=== PATIENT | female | born 1945 | race Caucasian/White ===

== ENCOUNTER → 2016-10-07 | Outpatient (CLI) | payer OTHER, MEDICARE | LOC: WC.BC 08:08 | DX: Z12.31 Encounter for screening mammogram for malignant neoplasm of breast (principal) | CPT/HCPCS: 77063; G0202 ==

== ENCOUNTER 2017-01-01 13:41 | Inpatient (IN) ==
[2017-01-01] MEDS ORDERED: SALINE FLUSH 10ml SYRINGE IVF PRN (13:54)
--- NOTE | 2017-01-01 14:00 | Emergency Department Report ---
Lower Extremity Injury HPI - General Chief Complaint: Extremity Injury, Lower Stated Complaint: Rt hip pain Time Seen by Provider: 01/01/17 13:54 - History of Present Illness HPI Narrative: 71-year-old female presents via EMS with right hip pain. 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 She felt like it was dangling and she could not contract muscles. That resolved fairly quickly, but she realized that there was something on and called for help. No previous hip fracture - Related Data Home Medications Medication Instructions Recorded Confirmed Acetaminophen [Pain Relief] 1,000 mg PO Q8H PRN 01/01/17 01/01/17 Simvastatin [Simvastatin] 20 mg PO HS 01/01/17 01/01/17 Allergies Allergy/AdvReac Type Severity Reaction Status Date / Time No Known Allergies Allergy Verified 01/01/17 13:58 Review of Systems All systems: reviewed and negative except as stated Physical Exam - Limitations Limitations: no limitations - General General appearance: alert, anxious - Normal Exams: Head:: Normocephalic without trauma Chest/Respirations:: Clear all guo, with good airflow, and symmetry bilaterally Cardiovascular:: Regular rate and rhythm, without murmur or gallop, Pulses 2+ all extremities, capillary refill, <2 seconds all extremities Abdomen:: Bowel sounds positive, soft, non-tender, non-distended, no hepatosplenomegaly, masses or bruits noted Neurological:: Patient is alert, and oriented, cranial nerves, motor/sensory/ cerebellar, exams w/o gross deficits, to observation Psychiatric:: Patient exhibits, appropriate attention, emotion and affect - Expanded Lower Extremity Exam Hip/Pelvis exam: Present: external rotation, shortening, other (patient is comfortable as long as her knee is up on a pillow allowing for the external rotation.) - Neurological Exam Neurological exam: Present: alert, oriented X3, other (patient has no motor sensory deficit in either leg, full sensation, pedal pulses are appropriate) Course Vital Signs Temperature 97.7 F 01/01/17 13:48 Pulse Rate 93 01/01/17 13:48 Respiratory Rate 20 01/01/17 13:48 Blood Pressure 190/86 H 01/01/17 13:48 Pulse Oximetry 99 01/01/17 13:48 Temperature 97.7 F 01/01/17 13:48 Pulse Rate 91 01/01/17 15:47 Respiratory Rate 20 01/01/17 13:48 Blood Pressure 148/92 H 01/01/17 15:47 Pulse Oximetry 98 01/01/17 15:47 Extremity Injury, Lower - MDM Narrative Medical decision making narrative: Femoral neck fracture noted on xray. Orthopedics consulted and Dr Rodriguez would like her placed in [employer] Traction and film reshot to see if leg can be relengthened prior to surgery this evening. Traction ordered and will be placed once patient is in a bed which will support it. Pain treated with 25mcg Fentanyl by ems, then 2mg morphine iv. Pt is medically stable at this time and Orthopedics will admit her. - Lab Data Result diagrams: 01/01/17 15:10 01/01/17 15:10 Lab Results 01/01/17 01/01/17 Range/Units 15:10 15:10 WBC 15.8 H (4.5-11.0) T/MM3 RBC 5.09 (4.00-5.20) M/MM3 Hgb 14.9 (12-16) GM/DL Hct 43.7 (36-46) % MCV 85.9 (80-100) UM3 MCH 29.3 (26-34) UUG MCHC 34.1 (31-37) GM/DL RDW Std Deviation 42.8 (36.9-50.2) FL Plt Count 149 (130-400) T/MM3 MPV 12.3 (9.4-12.4) UM3 Immature Gran % (Auto) Not performed Neut % (Auto) Not performed Lymph % (Auto) Not performed [place] % (Auto) Not performed Eos % (Auto) Not performed Baso % (Auto) Not performed Neut # Not performed Lymph # Not performed [place] # Not performed Baso # Not performed Abs Immat Gran (auto) Not performed Neutrophils % (Manual) 80.0 H (33-66) % Band Neutrophils % 9.0 H (0-6) % Lymphocytes % (Manual) 4.0 L (23-45) % Monocytes % (Manual) 7.0 (0-9.0) % Neutrophils # (Manual) 12.6 H (1.8-7.7) T/MM3 Band Neutrophils # 1.4 T/MM3 Lymphocytes # (Manual) 0.6 L (1-4.8) T/MM3 Monocytes # (Manual) 1.1 H (0-0.8) T/MM3 RBC Morph Comment Normal Turbidity < 20 (0-20) Sodium 139 (134-144) MEQ/L Potassium 3.5 L (3.6-5) MEQ/L Chloride 104 (98-107) MEQ/L Carbon Dioxide 25 (22-30) MEQ/L Anion Gap 10 (5-15) MEQ/L BUN 13.0 (7-17) MG/DL Creatinine 0.7 (0.7-1.2) MG/DL GFR Calculation 83 BUN/Creatinine Ratio 19 (6-26) RATIO Glucose 115 H (65-110) MG/DL Calculated Osmolality 269 (261-280) MOSM/KG Calcium 9.4 (8.4-10.2) MG/DL Total Bilirubin 0.50 (0.20-1.30) MG/DL Icterus Index < 2 (0-7) AST 24 (14-36) U/L ALT 41 (9-52) U/L Alkaline Phosphatase 115 (38-126) U/L Total Protein 6.1 L (6.3-8.2) G/DL Albumin 4.2 (3.5-5.0) G/DL Globulin 1.9 L (2.4-3.6) G/DL Albumin/Globulin Ratio 2.2 (1.1-2.2) RATIO Specimen Hemolysis < 15 (0-25) Disposition Clinical Impression: Intertrochanteric fracture of right hip Qualifiers: Encounter type: initial encounter Fracture type: closed Fracture alignment: displaced Qualified Code(s): S72.141A - Displaced intertrochanteric fracture of right femur, initial encounter for closed fracture [place] [facility] [place]: Stable Prescriptions: No Action Simvastatin [Simvastatin] 20 mg PO HS Acetaminophen [Pain Relief] 1,000 mg PO Q8H PRN PRN Reason: Pain Referrals: ROSELINE RAMOS [Primary Care Provider] - Time of Disposition: 16:07 - Seen By: physician
--- NOTE | 2017-01-01 14:40 | XRay Report ---
Indication: fall with right hip pain PROCEDURE: XR hip RT min 2V: Encounter: Initial Comparison: None Findings: Angulated intertrochanteric fracture of the right femur. No additional acute fracture or dislocation seen. Mild bony demineralization. [place] anterior angulation on the crosstable lateral view. Impression: Closed posttraumatic intertrochanteric right femoral fracture. .
--- NOTE | 2017-01-01 15:02 | XRay Report ---
Indication: femur fracture PROCEDURE: XR chest 1V: Encounter: Initial Comparison: None Findings: Rounded dense 1.2 cm nodule projecting over the right anterior third rib. Mild prominence of the interstitial markings. No consolidative pneumonia, pleural effusion or pneumothorax. Heart size and mediastinal contours are within normal limits. Pulmonary vascularity is not enlarged. Impression: 1. No acute cardiopulmonary disease. 2. Dense nodule projecting over the right upper lobe could be within the lung, bone or soft tissues. Recommend noncontrast chest CT for further evaluation. .
[2017-01-01] MEDS ORDERED: MORPHINE SULFATE 10 MG SYRINGE IV ONE ×2 (15:03→16:04)
--- NOTE | 2017-01-01 15:53 | Orthopedic Consult Note ---
Orthopedic Consultation HPI - Consultation Info Consult Date: 01/01/17 Attending Physician: Isabela Rodriguez MD Consult Reason: fracture (right hip fracture.) - History of Present Illness 71 yo female who was at work today when she fell and injured her right hip. She had severe pain and was unable to ambulate. [place] [facility] showed an intertrochanteric fx of the right hip. She reports the right foot feels a little numb but she is able to move it without limitations. No reported head injury. Denies other injury except for her right hip. Hospitalist to admit. Review of Systems - Constitutional Constitutional: Absent: chills, fever(s), headache(s) - Cardiovascular Cardiovascular: Absent: chest pain - Respiratory Respiratory: Absent: dyspnea - Gastrointestinal Gastrointestinal: Absent: abdominal pain - Musculoskeletal Musculoskeletal: Present: as per HPI - Neurological Neurological: Present: other (Reports the right foot feels a little numb.) - Psychiatric Psychiatric: Present: other (No complaints.) - Hematologic/Lymphatic Hematologic/Lymphatic: Absent: easy bleeding, easy bruising PFSH Dyslipidemia Medications Home Medications Medication Instructions Recorded Confirmed Type Acetaminophen [Pain Relief] 1,000 mg PO Q8H PRN 01/01/17 01/01/17 History Simvastatin [Simvastatin] 20 mg PO HS 01/01/17 01/01/17 History Allergies Allergy/AdvReac Type Severity Reaction Status Date / Time No Known Allergies Allergy Verified 01/01/17 13:58 Orthopedic Exam Vital signs: Temp Pulse Resp BP Pulse Ox 97.7 F 91 20 148/92 H 98 01/01/17 13:48 01/01/17 15:47 01/01/17 13:48 01/01/17 15:47 01/01/17 15:47 - Constitutional General Appearance: Present: alert, no acute distress - Respiratory Exam Present: non-labored - Cardiovascular Exam Present: pedal pulses intact Capillary Refill: < 2-3 Seconds - Extremities Exam Present: pulses intact - Integumentary Exam Present: pink, warm, dry, intact - Neurological Exam Present: no deficits - Psychiatric Exam Present: alert - Labs Result Diagrams: 01/01/17 15:10 01/01/17 15:10 Abnormal lab results 01/01/17 01/01/17 Range/Units 15:10 15:10 WBC 15.8 H (4.5-11.0) T/MM3 Neutrophils % (Manual) 80.0 H (33-66) % Band Neutrophils % 9.0 H (0-6) % Lymphocytes % (Manual) 4.0 L (23-45) % Neutrophils # (Manual) 12.6 H (1.8-7.7) T/MM3 Lymphocytes # (Manual) 0.6 L (1-4.8) T/MM3 Monocytes # (Manual) 1.1 H (0-0.8) T/MM3 Potassium 3.5 L (3.6-5) MEQ/L Glucose 115 H (65-110) MG/DL Total Protein 6.1 L (6.3-8.2) G/DL Globulin 1.9 L (2.4-3.6) G/DL H & H 01/01/17 Range/Units 15:10 Hgb 14.9 (12-16) GM/DL Hct 43.7 (36-46) % Impression and Recommendation (1) Intertrochanteric fracture of right hip Current visit: Yes Qualifiers: Encounter type: initial encounter Fracture type: closed Fracture alignment: displaced Qualified Code(s): S72.141A - Displaced intertrochanteric fracture of right femur, initial encounter for closed fracture Status: Acute Dr Rodriguez has evaluated the pt and recommends internal fixation of the right hip to treat this fracture. Pt is active and still in the work force which makes her a good candidate to fix this. The hospitalist will admit and evaluate for medical clearance. Risks and benefits of the recommended procedure were discussed with the patient and/or patient's legal automobile sales representative. They include: infection, nerve damage, artery damage, stroke, [place], PE, DVT, ileus, continued pain, or risk that the injury may not heal despite surgery. There are also medical risks of anesthesia. Risks are not limited to the above mentioned alone. Questions were answered to the pts satisfaction. Hospital Course Summary Disclaimer: The visit summary below is not to be considered part of the above Progress Note.
[2017-01-01] MEDS: LR 1,000 ML IV SCH ×2 (16:33→18:55)
[2017-01-01] MEDS ORDERED: LIDOCAINE 1% (10mg/ml) 30ml SDV INJ ONE (16:50)
[2017-01-01] MEDS ORDERED: BUPIVACAINE 0.25% (2.5mg/ml) PF 30ml INJECTION ONE (16:50)
[2017-01-01] MEDS ORDERED: FentaNYL 100 MCG/2 ML INJECTION ONE (17:07)
[2017-01-01] MEDS ORDERED: MIDAZOLAM 2mg/2ml INJECTION ONE (17:07)
[2017-01-01] MEDS ORDERED: BUPIV 0.25% 30ml/LIDO 1% 30ml MIXTURE IR ONE (17:20)
[2017-01-01] MEDS ORDERED: CEFAZOLIN 1 G INJECTION IVP ONE ×2 (17:21→19:15)
[2017-01-01] MEDS ORDERED: HYDROMORPHONE 2 MG/ML INJECTION ONE (18:09)
[2017-01-01] MEDS ORDERED: PHENYLEPHRINE INJ 10 MG/ML VIAL IV ONE (18:23)
[2017-01-01] MEDS ORDERED: SALINE FLUSH 10ml SYRINGE ONE (18:23)
--- NOTE | 2017-01-01 18:46 | Anesthesia Preoperative Report ---
Anesthesia Preoperative Record - Date and Time Date: 01/01/17 Preoperative Diagnosis: Right hip fracture Proposed Procedure: right femur gamma nail NPO Since Date: 01/01/17 NPO Since Time: 11:00 (crackers and soda ) Allergies/Adverse Reactions: Allergies Allergy/AdvReac Type Severity Reaction Status Date / Time No Known Allergies Allergy Verified 01/01/17 13:58 - Vital Signs Vital Signs: Temp Pulse Resp BP Pulse Ox 98.2 F 96 16 132/66 92 01/01/17 16:10 01/01/17 16:10 01/01/17 16:10 01/01/17 16:10 01/01/17 16:10 - Medications Inpatient Medications: Current Medications Lactated Ringer's (Lactated Ringers) 1,000 mls @ 50 mls/hr IV .Q20H RITESH Last Admin: 01/01/17 16:33 Dose: 50 mls/hr Sodium Chloride (Iv Flush) 10 - 80 ml IVF PRN PRN PRN Reason: [place] Home Medications: Home Medications Medication Instructions Recorded Confirmed Type Acetaminophen [Pain Relief] 1,000 mg PO Q8H PRN 01/01/17 01/01/17 History Simvastatin [Simvastatin] 20 mg PO HS 01/01/17 01/01/17 History Is Patient on Beta Randy?: No - Medical History Respiratory: Reports: Chronic Obstructive Pulmonary Disease (COPD) (possible) Cardiovascular: Reports: High Cholesterol DENIES: Hypertension Gastrointestional: DENIES: Gastroesophageal Reflux Disease Neuro/Musculoskeletal: Denies: Other Renal/Endocrine: DENIES: Diabetes Mellitus Type 2 Other History: DENIES: Anesthesia Reactions - Surgical History Musculoskeletal Surgery/Tx: Reports: Other (FEMORAL HEAD) Anesthesia Reactions: None Hx Family Anesthesia Reaction: No History of Motion Sickness: No - Social History Smoking Status: Current every day smoker Packs per day: 20 Hx Chewing Tobacco Use: No Substance Use Type: does not use - Pertinent Findings EKG Rhythm: Normal Sinus Rhythm, First Degree AV-Block - Physical Exam Respiratory Exam: Present: bilateral breath sounds equal (s) Cardiovascular Exam: Present: regular rate and rhythm Physical Exam: slightly coarse - Airway Assessment Mallampati Score: II TMD: 3 Fingerbreadths Neck Extension: fair Overall Assessment: no airway concerns - ASA ASA Score: 2 - Plan Anesthesia: General Inhalation Gases - Discussion Discussion: Discussed risks/options/alternatives of anesthesia and questions answered. Patient consents. Nursing pain assessment noted. Present for Discussion: family member Attestation Statement: Prior to the delivery of any anesthetic medication, I examined the patient, developed the plan, obtained the patient's consent and discussed the risk and benefits of the procedure with the patient/guardian. - Additional Information Seen by Anesthesia: Yes
[2017-01-01] MEDS ORDERED: ONDANSETRON 4 MG/2 ML INJECTION ONE (18:49)
[2017-01-01] MEDS ORDERED: DEXAMETHASONE 4 MG/ML INJECTION ONE (18:49)
--- NOTE | 2017-01-01 19:14 | Operative Note ---
- Procedure Date of Admission: 01/01/17 Side: right Preoperative Diagnosis: other (two-part basocervical intertrochanteric hip fracture) Postoperative Diagnosis: Same as preoperative diagnosis. Operation: CM fix of intertrochanteric hip fx Surgeon: Nishi Rodriguez MD Home Service Technician: CORINA Ventura Complications: None. Anesthesia: General Inhalation Gases Estimated Blood Loss: See Anesthesia Record. Fluids: Please see Anesthesia Record. Description of Procedure: Mrs. Chavez in her right hip were identified and marked in the preoperative holding area. She was brought back to the operating suite placed under general anesthesia and intubated. She is then placed on a fracture table and both feet were placed in well-padded traction boots. The right leg was placed in traction adduction internal rotation. The left leg was placed into extension. The right lower joint was prepped and draped in the normal sterile fashion. A 3 cm incision was made proximal to the greater trochanter sharp dissection was carried through the muscle fascia in the proximal femur was opened over a guidepin. A second incision was made in line with lesser trochanter. A bone hook was brought in anteriorly the femur and used to help reduce the femoral neck back to the shaft. This will: AP view used also a Bland to help reduce the neck which was displaced anteriorly on the lateral view. These were held reduced while the shaft was reamed to 12.5. We then measured for [address] along 340 mm gamma nail over the guidepin. The guidepin was removed. All the fracture was held reduced a guidepin was placed using the aiming arm into a center center position into the femoral head. This was measured for 95 lag screw. The guidepin was overreamed and the lag screw was placed we did notice some rotation the femoral neck so I placed a guidepin to act as a counter rotation device. Once like screw was in place traction was let down and his compression not to provide compression at the fracture site. The aiming arm was then removed and the nail was locked distally with 2 locking bolts from lateral to medial using perfect stillaguamish technique. All wounds were thoroughly irrigated with normal saline and closed in layers. Dermabond was used on the skin followed by sterile dressing. The drapes removed the patient was placed back onto her hospital room bed and taken to the recovery room under the care of anesthesia. She tolerated the procedure well there were no complications.
[2017-01-01] MEDS ORDERED: NOZIN NASAL SWAB NAS ONE ×2 (19:15→19:39)
[2017-01-01] MEDS ORDERED: SENNA + DOCUSATE TABLET PO PRN (19:39)
[2017-01-01] MEDS ORDERED: ACETAMINOPHEN 500 MG TABLET PO PRN (19:39)
[2017-01-01] MEDS ORDERED: HYDROMORPHONE 2 MG/ML INJECTION IVP PRN (19:39)
[2017-01-01] MEDS ORDERED: ONDANSETRON 4 MG/2 ML INJECTION IVP PRN (19:39)
--- NOTE | 2017-01-01 19:42 | Anesthesia Postoperative Note ---
- Date and Time Date: 01/01/17 Time: 19:42 - Status Patient Participated in Evaluation: Patient Participated in Person Vital Signs: Temp Pulse Resp BP Pulse Ox 98.2 F 85 22 120/56 94 01/01/17 19:13 01/01/17 19:39 01/01/17 19:39 01/01/17 19:39 01/01/17 19:39 Respiratory Function: Airway Patent Cardiovascular Function: Regular Pulse EKG Rhythm: Normal Sinus Rhythm Mental Status: Alert and Oriented Hydration: IV Infusing Complications During Recover: None Apparent - Follow-Up Instructions Instructions: Per Surgeon
[2017-01-01] MEDS: NS 1,000 ML IV SCH (20:27)
[2017-01-01] MEDS: NOZIN NASAL SWAB NAS SCH (21:28)
[2017-01-01] MEDS: SIMVASTATIN 20 MG TABLET PO SCH (21:28)
[2017-01-01] MEDS: HYDROCODONE/APAP 7.5 MG/325 MG TABLET PO PRN (21:33)
[2017-01-01] MEDS: ENOXAPARIN 40 MG/0.4 ML INJECTION SQ SCH (22:34)
[2017-01-02] MEDS: CEFAZOLIN 1 G in NS 100 ML IV SCH ×2 (01:35→08:50)
[2017-01-02] MEDS: NOZIN NASAL SWAB NAS SCH ×3 (04:25→21:07)
[2017-01-02] MEDS: HYDROCODONE/APAP 7.5 MG/325 MG TABLET PO PRN ×2 (07:30→16:18)
--- NOTE | 2017-01-02 08:44 | Orthopedic Progress Note ---
Date: Subjective/Severity of Illness: Mrs. Chavez is doing well this morning. She has expected pain in her right hip. She denies chest pain or shortness of breath. Orthopedic Objective Vital signs: Temp Pulse Resp BP Pulse Ox 98.0 F 91 18 114/63 91 01/02/17 07:39 01/02/17 07:39 01/02/17 07:39 01/02/17 07:39 01/02/17 07:39 - Constitutional General Appearance: Present: alert, no acute distress - Respiratory Exam Present: non-labored - Cardiovascular Exam Capillary Refill: < 2-3 Seconds - Extremities Exam Present: pulses intact - Integumentary Exam Present: pink, warm, dry, intact - Neurological Exam Present: no deficits - Wound Management rt hip Wound Type: Surgical Incision Drainage Amount: Scant - Labs Result Diagrams: 01/02/17 05:00 01/02/17 05:00 Abnormal lab results 01/02/17 01/02/17 Range/Units 05:00 05:00 WBC 11.1 H (4.5-11.0) T/MM3 Plt Count 87 L D (130-400) T/MM3 MPV 12.7 H (9.4-12.4) UM3 Neut % (Auto) 77.9 H (33-66) % Lymph % (Auto) 10.9 L (23-45) % [place] % (Auto) 10.6 H (0-9.0) % Neut # 8.6 H (1.8-7.7) T/MM3 [place] # 1.2 H (0-0.8) T/MM3 Abs Immat Gran (auto) 0.04 H (0.00-0.03) T/MM3 Glucose 158 H (65-110) MG/DL H & H 01/02/17 Range/Units 05:00 Hgb 12.2 D (12-16) GM/DL Hct 36.6 D (36-46) % Orthopedic Assessment and Plan (1) Intertrochanteric fracture of right hip Status: Acute Qualifiers: Encounter type: initial encounter Fracture type: closed Fracture alignment: displaced Qualified Code(s): S72.141A - Displaced intertrochanteric fracture of right femur, initial encounter for closed fracture Assessment and Plan: Weightbearing as tolerated Lovenox for DVT prophylaxis Physical therapy for mobilization Hospital Course Summary Disclaimer: The visit summary below is not to be considered part of the above Progress Note.
--- NOTE | 2017-01-02 11:49 | Consult Note ---
<Amada Hernandez V - Last Filed: 01/02/17 11:42> Consult Information - Data of Consult Patient: new to practice Consult date: 01/02/17 Requesting Physician: Roseline Rodriguez MD Primary Care Provider: ROSELINE RAMOS - Consult Narrative Reason for consult: hypercholesterolemia, hypoxia History of present illness: Mariela is a pleasant 71-year-old female who unfortunately tripped and fell at work yesterday landing on her right side. She was brought to [facility] emergency room yesterday afternoon for acute evaluation. Here she was found to have a intertrochanteric fracture of the right hip. She was admitted under the care of Dr. Rodriguez and taken directly to the operating room for CM fix of intertrochanteric hip fx. medical consultation was placed. Given patient's existing comorbidities of hypercholesterolemia and chronic tobacco dependence. Mariela is seen today for initial consultation. She is alert, oriented and pleasant. She is continues to require oxygen between 2 and 3 liters since surgery. She denies feeling short of breath or having chest pain. No GI complaints. Appetite has been good. Fully catheter remains in place since surgery. She does report some mild discomfort to the right hip postoperatively. Patient does have a chronic history of tobacco dependence, however, does not normally require oxygen at home. She is otherwise a fairly healthy and active lady. 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 Review of Systems All systems: reviewed and no additional remarkable complaints except as stated - Cardiovascular Cardiovascular: Absent: chest pain - Musculoskeletal Musculoskeletal: Present: as per HPI Musculoskeletal Comments: Right hip pain - Hematologic/Lymphatic Hematologic/Lymphatic: Absent: easy bleeding, easy bruising [facility] Patient Stated Medical History Hypercholesterolemia Chronic tobacco dependence History of right thumb trigger finger Surgical History: Right thumb trigger finger release. Left breast biopsy Family History: Father-diabetes, prostate cancer Mother-congestive heart failure, kidney cancer - Social History Smoking status: Current every day smoker Alcohol intake frequency: does not drink Current occupation: cafeteria at [employer] Current residence: Apartment/Private Home Social history: Primary care provider, Dr. Ramos in [place], [place] Medications Home Medications Medication Instructions Recorded Confirmed Type Acetaminophen [Pain Relief] 1,000 mg PO Q8H PRN 01/01/17 01/01/17 History Simvastatin [Simvastatin] 20 mg PO HS 01/01/17 01/01/17 History Allergies Allergy/AdvReac Type Severity Reaction Status Date / Time No Known Allergies Allergy Verified 01/01/17 13:58 Exam Vital Signs: Temp Pulse Resp BP Pulse Ox 98.0 F 91 18 114/63 91 01/02/17 07:39 01/02/17 07:39 01/02/17 07:39 01/02/17 07:39 01/02/17 07:39 Height: 1.6 m Weight: 67.3 kg - Constitutional Present: no acute distress - Routine HEENT Exam Head: Present: normocephalic, atraumatic Eye: Present: EOMI, PERRL ENT: Present: mucous membranes moist - Routine Neck Exam Present: supple, full ROM - Routine Respiratory Exam Present: CTA bilaterally - Routine Cardiovascular Exam Present: RRR, S1, S2 - Routine Abdominal Exam Present: soft, normoactive bowel sounds - Routine Extremities Exam Present: tenderness (Right hip- Postop) - Routine Back/Spine/Pelvis Exam Back/Spine: Present: full ROM - Routine Skin Exam Present: intact, warm - Routine Neurological Exam Present: alert, oriented X3, CN II-XII intact - Routine Psychiatric Exam Present: normal affect, normal thought process Results - Labs CBC & Chem 7: 01/02/17 05:00 01/02/17 05:00 Assessment and Plan (1) Intertrochanteric fracture of right hip Current visit: Yes Status: Acute (2) Hypercholesterolemia Current visit: Yes Status: Chronic (3) Tobacco dependence Current visit: Yes Status: Chronic (4) Hypoxia Current visit: Yes Status: Acute Assessment and Plan: All orthopedic care/orders as per Dr. Rodriguez. Will work on weaning down oxygen as patient has required 2-3 liters postoperatively. Patient is a chronic tobacco user, however denies known history of COPD. This with nursing staff regarding bladder retraining with hopes to discontinue Kaiser catheter later today. Lovenox subcutaneous daily for postoperative DVT prophylaxis starting this evening. Continue with [place] for ongoing pain control. Senna plus and milk of magnesia for postoperative bowel motivation. Continue with routine home Zocor. Reviewed morning laboratory studies. WBC count 11.1, hemoglobin stable at 12.2. Electrolytes are normal. Mild hyperglycemia, which is likely related to intraoperative Decadron given last evening. Overall patient appears to be medically stable. Appreciate medical consultation. We will continue to follow patient during her stay. At time of discharge medical care will return to her primary care provider, Dr. Ramos in [facility] Course Summary Disclaimer: The visit summary below is not to be considered part of the above Progress Note. Hospital Course: 01/02/17 -consultation All orthopedic care/orders as per Dr. Rodriguez. Will work on weaning down oxygen as patient has required 2-3 liters postoperatively. Patient is a chronic tobacco user, however denies known history of COPD. This with nursing staff regarding bladder retraining with hopes to discontinue Kaiser catheter later today. Lovenox subcutaneous daily for postoperative DVT prophylaxis starting this evening. Continue with [place] for ongoing pain control. Senna plus and milk of magnesia for postoperative bowel motivation. Continue with routine home Zocor. Reviewed morning laboratory studies. WBC count 11.1, hemoglobin stable at 12.2. Electrolytes are normal. Mild hyperglycemia, which is likely related to intraoperative Decadron given last evening. Overall patient appears to be medically stable. Appreciate medical consultation. We will continue to follow patient during her stay. At time of discharge medical care will return to her primary care provider, Dr. Ramos in [place], [place] Sepsis Assessment - Evaluation Sepsis screening result: No Definite Risk <Magdalena Sargent - Last Filed: 01/02/17 21:26> Consult Information - Data of Consult Requesting Physician: Roseline Rodriguez MD Primary Care Provider: ROSELINE RAMOS [facility] Patient Stated Medical History Hypertension No Chronic Obstructive Pulmonary Yes: possible Disease (COPD) Diabetes Mellitus Type 2 No Gastroesophageal Reflux No Disease Other Musculoskeletal No Anesthesia Reactions No Exam Vital Signs: Temp Pulse Resp BP Pulse Ox 98.5 F 94 16 131/59 93 01/02/17 20:00 01/02/17 20:00 01/02/17 20:00 01/02/17 20:00 01/02/17 20:00 Height: 1.6 m Weight: 67.3 kg Results - Labs CBC & Chem 7: 01/02/17 05:00 01/02/17 05:00 Assessment and Plan (1) Intertrochanteric fracture of right hip Current visit: Yes Status: Acute (2) Hypercholesterolemia Current visit: Yes Status: Chronic (3) Tobacco dependence Current visit: Yes Status: Chronic (4) Hypoxia Current visit: Yes Status: Acute (5) Pulmonary nodule, right Current visit: Yes Status: Acute 01/02/17 21:14 1.2 cm, RUL-duration unknown Assessment and Plan: Pt interviewed and examined earlier in the day. 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 Agree with above with additions as follows: Ms. Chavez slipped while washing dishes after she thinks a shoelace became trapped in something triggering a fall and immediate right hip/leg pain and inabilitiy to get up independently. She underwent surgical repair late in the day yesterday and reports minimal pain today. She was able to ambulate in the room and later halls today. She denied resp. sx or nausea. NAD, alert, cooperative resp non-laboered and BS clear RRR, S1 S2 Abd soft, non-tender sensation intact to light touch x 4 ext, able to DF/PF at ankles symmetrically. Minor drop in Hbg from preop value of 14.9 to 12.2 today. ECG reviewed by myself-unremarkable. p-CXR also reviewed by myself and demonstrates a 1.2 cm mass in the right upper field-unclear if in the lung or bone based. Doing well post-op. Will need further imaging of chest if not done in alternate setting in recent past. Will discuss further with pt in am. Hospital Course Summary Disclaimer: The visit summary below is not to be considered part of the above Progress Note.
[2017-01-02] MEDS: NS 1,000 ML IV SCH (12:09)
[2017-01-02] MEDS: ENOXAPARIN 40 MG/0.4 ML INJECTION SQ SCH (21:06)
[2017-01-02] MEDS: SIMVASTATIN 20 MG TABLET PO SCH (21:07)
[2017-01-03] MEDS: NS 1,000 ML IV SCH ×2 (02:15→21:48)
[2017-01-03] MEDS: HYDROCODONE/APAP 7.5 MG/325 MG TABLET PO PRN ×4 (03:09→20:28)
[2017-01-03] MEDS: NOZIN NASAL SWAB NAS SCH ×3 (03:10→20:17)
--- NOTE | 2017-01-03 08:01 | Orthopedic Progress Note ---
Date: Subjective/Severity of Illness: Mrs. Chavez is doing well this morning. She remains on oxygen. She states the cigarettes and she's been here. She is not craving cigarettes. Orthopedic Objective Vital signs: Temp Pulse Resp BP Pulse Ox 96.6 F L 94 16 101/64 91 01/03/17 07:49 01/03/17 07:49 01/03/17 07:49 01/03/17 07:49 01/03/17 07:49 Height and Weight: Weight 68.4 kg - Constitutional General Appearance: Present: alert, no acute distress - Respiratory Exam Present: non-labored - Cardiovascular Exam Capillary Refill: < 2-3 Seconds - Integumentary Exam Present: pink, warm, dry, intact - Neurological Exam Present: no deficits - Wound Management rt hip Wound Type: Surgical Incision Drainage Amount: Scant Primary Dressing: Non-Adherent Gauze Pad - Labs Result Diagrams: 01/03/17 04:31 01/03/17 04:31 Abnormal lab results 01/03/17 01/03/17 Range/Units 04:31 04:31 RBC 3.45 L (4.00-5.20) M/MM3 Hgb 10.0 L D (12-16) GM/DL Hct 31.0 L D (36-46) % Plt Count 59 L (130-400) T/MM3 MPV 12.6 H (9.4-12.4) UM3 Neut % (Auto) 67.4 H (33-66) % Lymph % (Auto) 16.0 L (23-45) % Maury % (Auto) 14.9 H (0-9.0) % Maury # 1.1 H (0-0.8) T/MM3 Chloride 110 H (98-107) MEQ/L Anion Gap 4 L (5-15) MEQ/L Glucose 117 H (65-110) MG/DL Calcium 8.1 L (8.4-10.2) MG/DL H & H 01/02/17 01/03/17 Range/Units 05:00 04:31 Hgb 12.2 D 10.0 L D (12-16) GM/DL Hct 36.6 D 31.0 L D (36-46) % Orthopedic Assessment and Plan (1) Intertrochanteric fracture of right hip Status: Acute Qualifiers: Encounter type: initial encounter Fracture type: closed Fracture alignment: displaced Qualified Code(s): S72.141A - Displaced intertrochanteric fracture of right femur, initial encounter for closed fracture Assessment and Plan: Continue current treatment and pain control. I encouraged her to quit smoking. Anticipate discharge home tomorrow with home health. Continue PT OT for mobilization. Continue Lovenox for DVT prophylaxis. (2) Hypercholesterolemia Status: Chronic (3) Tobacco dependence Status: Chronic (4) Hypoxia Status: Acute (5) Pulmonary nodule, right Status: Acute Hospital Course Summary Disclaimer: The visit summary below is not to be considered part of the above Progress Note. Hospital Course: 01/02/17 -consultation All orthopedic care/orders as per Dr. Rodriguez. Will work on weaning down oxygen as patient has required 2-3 liters postoperatively. Patient is a chronic tobacco user, however denies known history of COPD. This with nursing staff regarding bladder retraining with hopes to discontinue Kaiser catheter later today. Lovenox subcutaneous daily for postoperative DVT prophylaxis starting this evening. Continue with [place] for ongoing pain control. Senna plus and milk of magnesia for postoperative bowel motivation. Continue with routine home Zocor. Reviewed morning laboratory studies. WBC count 11.1, hemoglobin stable at 12.2. Electrolytes are normal. Mild hyperglycemia, which is likely related to intraoperative Decadron given last evening. Overall patient appears to be medically stable. Appreciate medical consultation. We will continue to follow patient during her stay. At time of discharge medical care will return to her primary care provider, Dr. Hudson in [place], [place]
[2017-01-03] MEDS ORDERED: HYDROMORPHONE 2 MG/ML INJECTION IVP PRN (11:49)
--- NOTE | 2017-01-03 11:55 | Progress Note ---
<Kiki Yousif - Last Filed: 01/03/17 11:50> Subjective: Mariela is seen today in follow up. She is reporting feeling fairly well, but does have some concerns. Daughter and are visiting and gives collateral information. We did discuss findings of a lung nodule- this is a new concern for her. She is unsure of if/when any prior CXR were done. Has been dealing with right shoulder pain referred into the back and extending down the arm at times as well. 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 She also reports pain in lumbar spine since fall. Around her natural waist. Rates this pain 4/10. Persistent. She has not been dx with COPD- smoking 1/2-1ppd since age 22. Does not use O2 or nebs at home. Concerned with wheezing this AM. She is using IS as instructed. Daughter is concerned with irregular heart rate in pre-op. No hx of AFib. Tele is on- NSR on telemetry. D/W pt and family POC; Questions answered. Objective Vital signs: Temp Pulse Resp BP Pulse Ox 96.6 F L 94 16 101/64 91 01/03/17 07:49 01/03/17 07:49 01/03/17 07:49 01/03/17 07:49 01/03/17 07:49 Rhythm: Normal Sinus Rhythm, First Degree AV-Block Weight: 68.4 kg - Constitutional Present: no acute distress, well nourished, cooperative - Routine HEENT Exam Head: Present: normocephalic, atraumatic Eye: Present: EOMI, PERRL ENT: Present: mucous membranes moist - Routine Respiratory Exam Present: decreased breath sounds (Bases. ), wheezes (Right upper lobe). Absent : accessory muscle use, dyspnea, respiratory distress - Routine Cardiovascular Exam Present: RRR, S1, S2, no murmur - Routine Abdominal Exam Present: soft, normoactive bowel sounds, non distended, non tender - Routine Exam Comments: Kaiser is out. - Routine Extremities Exam Present: edema (Trace LE), tenderness. Absent: full ROM - Routine Back/Spine/Pelvis Exam Back/Spine: Present: paraspinal tenderness (Lumbar area.) - Routine Musculoskeletal Exam Musculoskeletal: limited range of motion - Routine Skin Exam Present: dry, warm - Routine Neurological Exam Present: alert, oriented X3, normal speech - Routine Psychiatric Exam Present: normal affect, normal thought process, good insight, good judgment Results - Labs CBC & Chem 7: 01/03/17 04:31 01/03/17 04:31 - Impressions EKG- NSR, 1 degree AVB CXR- Right upper lung nodule. Assessment and Plan (1) Intertrochanteric fracture of right hip Current visit: Yes Status: Acute (2) Hypercholesterolemia Current visit: Yes Status: Chronic (3) Tobacco dependence Current visit: Yes Status: Chronic (4) Hypoxia Current visit: Yes Status: Acute (5) Pulmonary nodule, right Current visit: Yes Status: Acute 01/02/17 21:14 1.2 cm, RUL-duration unknown (6) COPD (chronic obstructive pulmonary disease) Current visit: Yes Status: Acute (7) Lumbar spine pain Current visit: Yes Status: Acute (8) Thrombocytopenia Current visit: Yes Status: Acute (9) Anemia Current visit: Yes Status: Acute DVT Prophylaxis: other (SCDs; Holding lovenox. ) GI Prophylaxis: other (N/A) Assessment and Plan: 01/03/17- *Right hip fx- Per ortho. Pt. had significant shortening and rotation after fall. s/p repair Daughter concerned re: outgoing gait. Did discuss that ongoing PT would be needed during recovery *Right lung nodule RUL wheezing and referred right shoulder pain concerning in light of her significant smoking hx. Obtain CT of the chest. D/W pt and family. *Likely COPD- Add Duoneb QID. May need to add pulmicort if wheezing persists. R/O obstructive lung lesion. Wean O2 as tolerated. I.S ongoing. *Thrombocytopenia/Anemia/Leukocytosis- Assess UA to R/O infection. Assess B12/Folate/Iron given anemia. Lovenox on hold. Monitor CBC for ongoing status. *HLD- Statin. *L-spine pain- Obtain L-spine imaging to R/O compression fx. Sepsis Assessment - Evaluation Sepsis screening result: No Definite Risk Hospital Course Summary Disclaimer: The visit summary below is not to be considered part of the above Progress Note. Hospital Course: 01/02/17 -consultation All orthopedic care/orders as per Dr. Rodriguez. Will work on weaning down oxygen as patient has required 2-3 liters postoperatively. Patient is a chronic tobacco user, however denies known history of COPD. This with nursing staff regarding bladder retraining with hopes to discontinue Kaiser catheter later today. Lovenox subcutaneous daily for postoperative DVT prophylaxis starting this evening. Continue with [place] for ongoing pain control. Senna plus and milk of magnesia for postoperative bowel motivation. Continue with routine home Zocor. Reviewed morning laboratory studies. WBC count 11.1, hemoglobin stable at 12.2. Electrolytes are normal. Mild hyperglycemia, which is likely related to intraoperative Decadron given last evening. Overall patient appears to be medically stable. Appreciate medical consultation. We will continue to follow patient during her stay. At time of discharge medical care will return to her primary care provider, Dr. Hudson in [place], [place] 01/03/17 12:08 *Right hip fx- Per ortho. Pt. had significant shortening and rotation after fall. Daughter concerned re: outgoing gait. Did discuss that ongoing PT would be needed during recovery *Right lung nodule RUL wheezing and referred right shoulder pain concerning in light of her significant smoking hx. Obtain CT of the chest. D/W pt and family. *Likely COPD- Add Duoneb QID. May need to add pulmicort if wheezing persists. R/O obstructive lung lesion. Wean O2 as tolerated. I.S ongoing. *Thrombocytopenia/Anemia/Leukocytosis- Assess UA to R/O infection. Assess B12/Folate/Iron given anemia. Lovenox on hold. Monitor CBC for ongoing status. *HLD- Statin. *L-spine pain- Obtain L-spine imaging to R/O compression fx. <Magdalena Sargent - Last Filed: 01/03/17 16:05> Objective Vital signs: Temp Pulse Resp BP Pulse Ox 99.2 F 110 H 20 119/61 92 01/03/17 15:46 01/03/17 15:46 01/03/17 15:46 01/03/17 15:46 01/03/17 15:46 Results - Labs CBC & Chem 7: 01/03/17 04:31 01/03/17 04:31 Assessment and Plan (1) Intertrochanteric fracture of right hip Current visit: Yes Status: Acute (2) Hypercholesterolemia Current visit: Yes Status: Chronic (3) Tobacco dependence Current visit: Yes Status: Chronic (4) Hypoxia Current visit: Yes Status: Acute (5) Pulmonary nodule, right Current visit: Yes Status: Acute 01/03/17 16:[address] (6) COPD (chronic obstructive pulmonary disease) Current visit: Yes Status: Acute (7) Lumbar spine pain Current visit: Yes Status: Acute (8) Thrombocytopenia Current visit: Yes Status: Acute (9) Anemia Current visit: Yes Status: Acute (10) Compression fracture of thoracic vertebra Current visit: Yes Status: Acute 01/03/17 15:59 T11-age indeterminant, clinically acute Assessment and Plan: I have independently evaluated and examined this patient. I reviewed the chart, the patient's history, and the DIRECTOR SURGICAL's documented findings as above. We discussed and formulated the assessment and plan as above with additions as below: Mariela denies dyspnea or cough but continues to require supplemental oxygen today. Her appetite is good and she denied significant leg/hip pain but is having increased pain in her right shoulder and low back as noted. No bowel movement since surgery. There is tenderness to palpation over the right deltoid tendon and decreased range of motion at the right shoulder. Respirations are nonlabored with diminished breath sounds at the bases bilaterally. Abdomen soft bowel sounds diminished. Platelets of dropped from 149 to current value of 59; Lovenox on hold. Hemoglobin down to 10.0 postoperatively from normal preoperative hemoglobin. CT of chest reviewed by myself revealing a calcified granuloma in the right upper lobe-no clinical significance. I don't detect any pathology in the right shoulder but will ask orthopedics to review; radiology describes a superior endplate compression deformity at [id number] fall and acute symptoms this is probably acute although radiographically this can't be determined. There is atelectasis at the left base. Lumbar spine films also reviewed demonstrating significant gaseous distention in the abdomen and degenerative changes L4-S1; compression fracture at T11 suggested on lateral views. X-ray results reviewed with patient and family members. Bowel regimen initiated with scheduled Senokot and when necessary MiraLAX. Probable acute compression fracture-T11. Check hit antibody to the rapid drop in platelet count although may well be postop drop with platelet consumption. Telemetry reviewed-sinus rhythm/sinus tach, supplemental history provided by nursing, discussed with nursing/family, CT chest and LS-spine films reviewed by myself, laboratory data reviewed; additional studies ordered. Hospital Course Summary Disclaimer: The visit summary below is not to be considered part of the above Progress Note.
--- NOTE | 2017-01-03 13:11 | Remote Fluorsocopy Report ---
Indication: RT HIP FX PROCEDURE: RF hip RT 2 view: Encounter: Initial Comparison: Hip radiographs dated January 01, 2017 Findings: 17 fluoroscopic spot images are submitted for interpretation. Images show open reduction and internal fixation of the right femoral fracture with placement of an intramedullary nail, compression screw and interlocking screws. Improved alignment of the fracture fragments. Impression: Fluoroscopy as above. Fluoroscopy time is 200.8 seconds. Fluoroscopy dose is 3480 mRad. .
--- NOTE | 2017-01-03 13:43 | XRay Report ---
Indication: Back pain PROCEDURE: XR lumbar spine 2-3V: Encounter: Initial Comparison: None Findings: Alignment of the lumbar spine is within normal limits. No acute fracture or subluxation seen. Mild to moderate disk space narrowing at L5-S1. Moderate to severe degenerative facet disease at L4-S1. Impression: No acute fracture. Degenerative disk and facet disease of the lower lumbar spine. .
--- NOTE | 2017-01-03 14:17 | CT Scan Report ---
Indication: Right lung nodule, Right shoulder pain PROCEDURE: CT chest wo con: Encounter: Initial Comparison: Chest x-ray dated January 01, 2017 Technique: Axial CT images were performed through the chest without intravenous contrast. Coronal and sagittal two-dimensional reformats. Automated Exposure Control and Iterative Reconstruction dose reducing techniques were utilized. Findings: The nodule seen on chest x-ray represents a densely calcified 1.2 cm granuloma in the peripheral right upper lobe. There is an adjacent smaller 0.6 cm granuloma adjacent to it. The remainder of the right lung is clear. There is airspace consolidation in the left costophrenic angle with a trace left effusion. Left upper lobe is clear. No pneumothorax. Central airways are patent. No axillary or mediastinal adenopathy. Calcified granulomas in the paratracheal region. Heart size is normal. No pericardial effusion. There is a superior endplate compression deformity of T11, age undetermined. Probable bone island within the T7 vertebra. Impression: 1. Left lower lobe atelectasis or pneumonia with trace effusion. 2. Age-indeterminate T11 superior endplate fracture. 3. Right lung nodule is a benign calcified granuloma. .
[2017-01-03] MEDS ORDERED: POLYETHYL GLYCOL 3350 17gm PACKET PO PRN (16:03)
[2017-01-03] MEDS: SENNA + DOCUSATE TABLET PO SCH (20:28)
[2017-01-03] MEDS: SIMVASTATIN 20 MG TABLET PO SCH (21:17)
[2017-01-03] MEDS: IPRATROPIUM/ALBUTEROL 2.5mg-0.5mg/3ml NEB AEROSOL SCH ×2 (21:21→21:28)
[2017-01-04] MEDS: NOZIN NASAL SWAB NAS SCH ×2 (03:03→12:50)
[2017-01-04] MEDS: HYDROCODONE/APAP 7.5 MG/325 MG TABLET PO PRN ×2 (03:22→09:21)
--- NOTE | 2017-01-04 07:52 | Orthopedic Progress Note ---
Date: Orthopedic Objective Vital signs: Temp Pulse Resp BP Pulse Ox 98.7 F 101 H 18 123/60 91 01/04/17 03:03 01/04/17 03:03 01/04/17 03:03 01/04/17 03:03 01/04/17 03:03 Height and Weight: Weight 68.4 kg - Constitutional General Appearance: Present: alert, no acute distress - Respiratory Exam Present: non-labored - Cardiovascular Exam Capillary Refill: < 2-3 Seconds - Extremities Exam Present: edema (Trace LE), tenderness. Absent: full ROM - Integumentary Exam Present: pink, warm, dry, intact - Neurological Exam Present: no deficits - Wound Management rt hip Wound Type: Surgical Incision Drainage Amount: Scant Primary Dressing: Non-Adherent Gauze Pad - Labs Result Diagrams: 01/04/17 04:17 01/04/17 04:17 Abnormal lab results 01/03/17 01/03/17 01/04/17 Range/Units 04:24 16:00 04:17 RBC 3.41 L (4.00-5.20) M/MM3 Hgb 9.8 L (12-16) GM/DL Hct 30.7 L (36-46) % Plt Count 73 L (130-400) T/MM3 MPV 13.1 H (9.4-12.4) UM3 Lymph % (Auto) 19.6 L (23-45) % [place] % (Auto) 15.3 H (0-9.0) % [place] # 0.9 H (0-0.8) T/MM3 Potassium (3.6-5) MEQ/L Glucose (65-110) MG/DL Hemoglobin A1c 5.6 L (6.1-7.9) % Iron (37-170) UG/DL TIBC (261-497) UG/DL Total Protein (6.3-8.2) G/DL Albumin (3.5-5.0) G/DL Globulin (2.4-3.6) G/DL Ur Specific [place] <=1.005 L (1.015-1.025) Ur Leukocyte Esterase Trace A (NEGATIVE) 01/04/17 01/04/17 Range/Units 04:17 04:17 RBC (4.00-5.20) M/MM3 Hgb (12-16) GM/DL Hct (36-46) % Plt Count (130-400) T/MM3 MPV (9.4-12.4) UM3 Lymph % (Auto) (23-45) % [place] % (Auto) (0-9.0) % [place] # (0-0.8) T/MM3 Potassium 3.5 L (3.6-5) MEQ/L Glucose 119 H (65-110) MG/DL Hemoglobin A1c (6.1-7.9) % Iron 20 L (37-170) UG/DL TIBC 206 L (261-497) UG/DL Total Protein 4.9 L (6.3-8.2) G/DL Albumin 3.0 L (3.5-5.0) G/DL Globulin 1.9 L (2.4-3.6) G/DL Ur Specific [place] (1.015-1.025) Ur Leukocyte Esterase (NEGATIVE) H & H 01/02/17 01/03/17 01/04/17 Range/Units 05:00 04:31 04:17 Hgb 12.2 D 10.0 L D 9.8 L (12-16) GM/DL Hct 36.6 D 31.0 L D 30.7 L (36-46) % Orthopedic Assessment and Plan (1) Intertrochanteric fracture of right hip Status: Acute Qualifiers: Encounter type: initial encounter Fracture type: closed Fracture alignment: displaced Qualified Code(s): S72.141A - Displaced intertrochanteric fracture of right femur, initial encounter for closed fracture (2) Hypercholesterolemia Status: Chronic (3) Tobacco dependence Status: Chronic (4) Hypoxia Status: Acute (5) Pulmonary nodule, right Status: Acute (6) COPD (chronic obstructive pulmonary disease) Status: Acute (7) Lumbar spine pain Status: Acute (8) Thrombocytopenia Status: Acute (9) Anemia Status: Acute (10) Compression fracture of thoracic vertebra Status: Acute Hospital Course Summary Disclaimer: The visit summary below is not to be considered part of the above Progress Note. Hospital Course: 01/02/17 -consultation All orthopedic care/orders as per Dr. Rodriguez. Will work on weaning down oxygen as patient has required 2-3 liters postoperatively. Patient is a chronic tobacco user, however denies known history of COPD. This with nursing staff regarding bladder retraining with hopes to discontinue Kaiser catheter later today. Lovenox subcutaneous daily for postoperative DVT prophylaxis starting this evening. Continue with [place] for ongoing pain control. Senna plus and milk of magnesia for postoperative bowel motivation. Continue with routine home Zocor. Reviewed morning laboratory studies. WBC count 11.1, hemoglobin stable at 12.2. Electrolytes are normal. Mild hyperglycemia, which is likely related to intraoperative Decadron given last evening. Overall patient appears to be medically stable. Appreciate medical consultation. We will continue to follow patient during her stay. At time of discharge medical care will return to her primary care provider, Dr. Hudson in [place], [place] 01/03/17 12:08 *Right hip fx- Per ortho. Pt. had significant shortening and rotation after fall. Daughter concerned re: outgoing gait. Did discuss that ongoing PT would be needed during recovery *Right lung nodule RUL wheezing and referred right shoulder pain concerning in light of her significant smoking hx. Obtain CT of the chest. D/W pt and family. *Likely COPD- Add Duoneb QID. May need to add pulmicort if wheezing persists. R/O obstructive lung lesion. Wean O2 as tolerated. I.S ongoing. *Thrombocytopenia/Anemia/Leukocytosis- Assess UA to R/O infection. Assess B12/Folate/Iron given anemia. Lovenox on hold. Monitor CBC for ongoing status. *HLD- Statin. *L-spine pain- Obtain L-spine imaging to R/O compression fx.
--- NOTE | 2017-01-04 09:16 | Orthopedic Progress Note ---
Date: Subjective/Severity of Illness: Mariela is doing well this AM. She states her back hurts more than her hip. She has has lumbar spine films which do not show any acute injury, but do show some degenerative changes at L5-S1 with decrease disk space height as well as facet arthropathy at L4-S1. She denies any leg pain or radiating back pain. She denies loss of bowel or bladder, and denies parasthesias. She has walked to the nursing station and back. Family is requesting IRU screen, and it has been placed. The other option is home with home health. She is off 02. Orthopedic Objective PO Vital signs: Temp Pulse Resp BP Pulse Ox 98.3 F 92 20 135/88 94 01/04/17 07:45 01/04/17 07:45 01/04/17 07:45 01/04/17 07:45 01/04/17 07:45 Height and Weight: Weight 150 lb 12.739 oz - Constitutional General Appearance: Present: alert, no acute distress - Respiratory Exam Present: non-labored - Cardiovascular Exam Present: pedal pulses intact Capillary Refill: < 2-3 Seconds - Abdominal Exam Present: soft - Extremities Exam Extremities: Present: edema (mild swelling in the foot, no tenderness, 2+ pulses , no calf tenderness.) - Hip Exam Hip Exam: Present: tender over trochanter, decreased ROM (felxion), decreased ROM (rotation). Absent: abnormal rotation - Surgical Site Incision: clean, dry, intact, dressing intact - Integumentary Exam Present: pink, warm, dry, intact - Neurological Exam Present: no deficits - Psychiatric Exam Present: alert - Wound Management rt hip Wound Type: Surgical Incision Drainage Amount: Scant Primary Dressing: Non-Adherent Gauze Pad - Labs Result Diagrams: 01/04/17 04:17 01/04/17 04:17 Abnormal lab results 01/03/17 01/03/17 01/04/17 Range/Units 04:24 16:00 04:17 RBC 3.41 L (4.00-5.20) M/MM3 Hgb 9.8 L (12-16) GM/DL Hct 30.7 L (36-46) % Plt Count 73 L (130-400) T/MM3 MPV 13.1 H (9.4-12.4) UM3 Lymph % (Auto) 19.6 L (23-45) % [place] % (Auto) 15.3 H (0-9.0) % [place] # 0.9 H (0-0.8) T/MM3 Potassium (3.6-5) MEQ/L Glucose (65-110) MG/DL Hemoglobin A1c 5.6 L (6.1-7.9) % Iron (37-170) UG/DL TIBC (261-497) UG/DL Total Protein (6.3-8.2) G/DL Albumin (3.5-5.0) G/DL Globulin (2.4-3.6) G/DL Ur Specific [place] <=1.005 L (1.015-1.025) Ur Leukocyte Esterase Trace A (NEGATIVE) 01/04/17 01/04/17 Range/Units 04:17 04:17 RBC (4.00-5.20) M/MM3 Hgb (12-16) GM/DL Hct (36-46) % Plt Count (130-400) T/MM3 MPV (9.4-12.4) UM3 Lymph % (Auto) (23-45) % [place] % (Auto) (0-9.0) % [place] # (0-0.8) T/MM3 Potassium 3.5 L (3.6-5) MEQ/L Glucose 119 H (65-110) MG/DL Hemoglobin A1c (6.1-7.9) % Iron 20 L (37-170) UG/DL TIBC 206 L (261-497) UG/DL Total Protein 4.9 L (6.3-8.2) G/DL Albumin 3.0 L (3.5-5.0) G/DL Globulin 1.9 L (2.4-3.6) G/DL Ur Specific [place] (1.015-1.025) Ur Leukocyte Esterase (NEGATIVE) H & H 01/02/17 01/03/17 01/04/17 Range/Units 05:00 04:31 04:17 Hgb 12.2 D 10.0 L D 9.8 L (12-16) GM/DL Hct 36.6 D 31.0 L D 30.7 L (36-46) % Orthopedic Assessment and Plan (1) Intertrochanteric fracture of right hip Status: Acute Qualifiers: Encounter type: initial encounter Fracture type: closed Fracture alignment: displaced Qualified Code(s): S72.141A - Displaced intertrochanteric fracture of right femur, initial encounter for closed fracture Assessment and Plan: 30 days of Lovenox 40mg SQ Q day WBAT arrange discharge. (2) Hypercholesterolemia Status: Chronic (3) Tobacco dependence Status: Chronic (4) Hypoxia Status: Acute (5) Pulmonary nodule, right Status: Acute (6) COPD (chronic obstructive pulmonary disease) Status: Acute (7) Lumbar spine pain Status: Acute (8) Thrombocytopenia Status: Acute (9) Anemia Status: Acute (10) Compression fracture of thoracic vertebra Status: Acute Hospital Course Summary Disclaimer: The visit summary below is not to be considered part of the above Progress Note.
[2017-01-04] MEDS: SENNA + DOCUSATE TABLET PO SCH (09:21)
[2017-01-04] MEDS ORDERED: FERROUS SULFATE 324 MG TABLET PO SCH (10:30)
[2017-01-04] MEDS: IPRATROPIUM/ALBUTEROL 2.5mg-0.5mg/3ml NEB AEROSOL SCH (11:03)
--- NOTE | 2017-01-04 11:57 | Discharge Summary ---
Orthopedic Discharge Info Date of admission: 01/01/17 16:56 Primary care physician: ROSELINE RAMOS Attending Physician: Roseline Rodriguez MD Consults: 01/04/17 IRU Screening [Inpatient Rehab Screening] [CONS] Routine Screen requested by:: Family/Patient Comment Text:: IRU SCREEN POSSIBLE DC THURSDAY 01/04. 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#[phone] - Discharge Diagnosis (1) Intertrochanteric fracture of right hip Qualifiers: Encounter type: initial encounter Fracture type: closed Fracture alignment: displaced Qualified Code(s): S72.141A - Displaced intertrochanteric fracture of right femur, initial encounter for closed fracture Status: Acute - Procedures Procedures: Right hip IM nail - Laboratory Result Diagrams: 01/04/17 04:17 01/04/17 04:17 Laboratory: Abnormal lab results 01/03/17 01/03/17 01/04/17 Range/Units 04:24 16:00 04:17 RBC 3.41 L (4.00-5.20) M/MM3 Hgb 9.8 L (12-16) GM/DL Hct 30.7 L (36-46) % Plt Count 73 L (130-400) T/MM3 MPV 13.1 H (9.4-12.4) UM3 Lymph % (Auto) 19.6 L (23-45) % [place] % (Auto) 15.3 H (0-9.0) % [place] # 0.9 H (0-0.8) T/MM3 Potassium (3.6-5) MEQ/L Glucose (65-110) MG/DL Hemoglobin A1c 5.6 L (6.1-7.9) % Iron (37-170) UG/DL TIBC (261-497) UG/DL Total Protein (6.3-8.2) G/DL Albumin (3.5-5.0) G/DL Globulin (2.4-3.6) G/DL Ur Specific [place] <=1.005 L (1.015-1.025) Ur Leukocyte Esterase Trace A (NEGATIVE) 01/04/17 01/04/17 Range/Units 04:17 04:17 RBC (4.00-5.20) M/MM3 Hgb (12-16) GM/DL Hct (36-46) % Plt Count (130-400) T/MM3 MPV (9.4-12.4) UM3 Lymph % (Auto) (23-45) % [place] % (Auto) (0-9.0) % [place] # (0-0.8) T/MM3 Potassium 3.5 L (3.6-5) MEQ/L Glucose 119 H (65-110) MG/DL Hemoglobin A1c (6.1-7.9) % Iron 20 L (37-170) UG/DL TIBC 206 L (261-497) UG/DL Total Protein 4.9 L (6.3-8.2) G/DL Albumin 3.0 L (3.5-5.0) G/DL Globulin 1.9 L (2.4-3.6) G/DL Ur Specific [place] (1.015-1.025) Ur Leukocyte Esterase (NEGATIVE) H & H 01/02/17 01/03/17 01/04/17 Range/Units 05:00 04:31 04:17 Hgb 12.2 D 10.0 L D 9.8 L (12-16) GM/DL Hct 36.6 D 31.0 L D 30.7 L (36-46) % Orthopedic Discharge HPI - HPI Comments 71 yo female who was at work today when she fell and injured her right hip. She had severe pain and was unable to ambulate. [place] [facility] [place] showed an intertrochanteric fx of the right hip. She reports the right foot feels a little numb but she is able to move it without limitations. No reported head injury. Denies other injury except for her right hip. . Orthopedic Hospital Course Hospital course: 01/04/17 11:56 After appropriate preoperative clearance and signing of operative consent, the patient was given IV antibiotics, according to orthopedic protocol. The patient was taken to the operating room and underwent right hip intramedullary nailing. Following surgery, antibiotics were discontinued less than 24 hours according to joint protocol. Appropriate anticoagulants were initiated and SCDs added for DVT prevention. The dressing was clean, dry, and intact. Pain control was obtained via multimodal approach. Bowel motivation addressed with scheduled and PRN medications. Early mobilization was initiated through PT services. Discharge arrangements made by a collaborative effort between the patient and Case Management. Follow-up is scheduled in 2-3 weeks. Discharge instructions given by orthopedic providers and nursing staff at discharge. Discharge condition was good. Ongoing care required?: Yes Comments: To IRU for continued rehabilitaion - Postoperative Anemia patient received IVF, labs monitored daily, no intervention required, HGB drop- acceptable Discharge Plan - Med Rec/Dispo Referrals/Follow Up: Roseline Rodriguez MD [Physician] - 2 Weeks (Please call [phone] to arrange follow up with Dr. Rodriguez ) Additional Instructions: Keep dressings clean, dry and intact. WBAT. Prescriptions: New Enoxaparin Sodium [Lovenox] 40 mg SQ Q24H #30 syr Hydrocodone/APAP 7.5/325 [[place] 7.5/325] 1 - 2 tab PO Q6H PRN #60 PRN Reason: Pain Continue Simvastatin 20 mg PO HS Acetaminophen [Pain Relief] 1,000 mg PO Q8H PRN PRN Reason: Pain - Disposition 64 To [facility]
--- NOTE | 2017-01-04 13:53 | Progress Note ---
<Amada Hernandez V - Last Filed: 01/04/17 13:49> Subjective: Mariela is seen this morning in follow up. She is working with therapy this morning. States postop hip pain is 3-4/10 and tolerable. She has been able to wean down off oxygen and is currently on room air. Kaiser cath was removed and she is voiding without difficulty. Objective Vital signs: Temp Pulse Resp BP Pulse Ox 98.3 F 107 H 20 118/62 90 01/04/17 07:45 01/04/17 11:24 01/04/17 11:24 01/04/17 11:24 01/04/17 11:24 Weight: 69.5 kg - Constitutional Present: no acute distress, well nourished, cooperative - Routine HEENT Exam Head: Present: normocephalic Eye: Present: EOMI, PERRL - Routine Respiratory Exam Present: CTA bilaterally - Routine Cardiovascular Exam Present: RRR, S1, S2 - Routine Abdominal Exam Present: soft, normoactive bowel sounds - Routine Extremities Exam Present: edema (R foot with mild edema), pulses intact - Routine Back/Spine/Pelvis Exam Back/Spine: Present: full ROM - Routine Skin Exam Present: intact, warm Comments: Right hip- postop pain - Routine Neurological Exam Present: alert, oriented X3, CN II-XII intact - Routine Psychiatric Exam Present: normal affect, normal thought process Results - Labs CBC & Chem 7: 01/04/17 04:17 01/04/17 04:17 Assessment and Plan (1) Intertrochanteric fracture of right hip Status: Acute (2) Hypercholesterolemia Status: Chronic (3) Tobacco dependence Status: Chronic (4) Hypoxia Status: Acute (5) Pulmonary nodule, right Status: Acute 01/03/17 16:[address] (6) COPD (chronic obstructive pulmonary disease) Status: Acute (7) Lumbar spine pain Status: Acute (8) Thrombocytopenia Status: Acute (9) Anemia Status: Acute (10) Compression fracture of thoracic vertebra Status: Acute 01/03/17 15:59 T11-age indeterminant, clinically acute Assessment and Plan: 01/04 Overall Mariela is doing well. She was accepted to IRU for ongoing therapy and improved post-op strengthening. Thrombocytopenia is improved as PLT count is up to 73 today. Lovenox remains on hold. [place] for pain control. (was found to have a compression fx of T-11) Continue to encourage work with incentive spirometry Bowel regimen initiated with scheduled Senokot and when necessary MiraLAX. Medical team will continue to follow patient on IRU for ongoing medical management Sepsis Assessment - Evaluation Sepsis screening result: No Definite Risk Hospital Course Summary Disclaimer: The visit summary below is not to be considered part of the above Progress Note. Hospital Course: 01/04 Overall Mariela is doing well. She was accepted to IRU for ongoing therapy and improved post-op strengthening. Thrombocytopenia is improved as PLT count is up to 73 today. Lovenox remains on hold. [place] for pain control. (was found to have a compression fx of T-11) Continue to encourage work with incentive spirometry Bowel regimen initiated with scheduled Senokot and when necessary MiraLAX. Medical team will continue to follow patient on IRU for ongoing medical management <Magdalena Sargent - Last Filed: 01/04/17 15:32> Objective Vital signs: Temp Pulse Resp BP Pulse Ox 98.3 F 107 H 20 118/62 90 01/04/17 07:45 01/04/17 11:24 01/04/17 11:24 01/04/17 11:24 01/04/17 11:24 Results - Labs CBC & Chem 7: 01/04/17 04:17 01/04/17 04:17 Assessment and Plan (1) Intertrochanteric fracture of right hip Status: Acute (2) Hypercholesterolemia Status: Chronic (3) Tobacco dependence Status: Chronic (4) Hypoxia Status: Acute (5) Pulmonary nodule, right Status: Acute (6) COPD (chronic obstructive pulmonary disease) Status: Acute (7) Lumbar spine pain Status: Acute (8) Thrombocytopenia Status: Acute (9) Anemia Status: Acute (10) Compression fracture of thoracic vertebra Status: Acute Assessment and Plan: I have independently evaluated and examined this patient. I reviewed the chart, the patient's history, and the INSOLE REINFORCER's documented findings as above. We discussed and formulated the assessment and plan as above with additions as below: Mariela reports that she feels better overall today. She was off oxygen when seen and she denied dyspnea. Right shoulder pain is improved but she continues to have more back pain around the waist level than is typical. She's been evaluated by IRU and tentatively accepted for transfer. Results of CT finding of small compression fracture at T11 were reviewed with the patient's daughter. NAD, alert, good airflow with clear breath sounds. No lower extremity edema present. Hemoglobin stable, iron levels depressed consistent with iron deficiency and B- 12 level low normal. Supplements for both B-12 and iron initiated orally. Stable for transfer to rehabilitation. Hospital Course Summary Disclaimer: The visit summary below is not to be considered part of the above Progress Note.
[2017-01-05] MEDS ORDERED: CYANOCOBALAMIN (B-12) 500mcg TABLET PO SCH (09:00)
== END 2017-01-04 13:50 | DRG 481 ==
LOC: ED 13:41 → SRG 16:56
PROVIDERS: ADMIT Orthopaedic Surgery; ATTEND Orthopaedic Surgery

== ENCOUNTER 2017-01-04 14:26 | Inpatient (IN) ==
[2017-01-04 14:50] VITALS: BMI 27.7
[2017-01-04] MEDS ORDERED: ACETAMINOPHEN 500 MG TABLET PO PRN (15:12)
[2017-01-04] MEDS: ALBUTEROL/IPRATROPIUM 2.5mg-0.5mg/3ml NEB AEROSOL SCH ×2 (17:09→20:49)
[2017-01-04] MEDS: HYDROCODONE/APAP 7.5 MG/325 MG TABLET PO PRN (18:39)
[2017-01-04] MEDS ORDERED: ENOXAPARIN 40 MG/0.4 ML INJECTION SQ SCH (19:39)
[2017-01-04] MEDS: SENNA + DOCUSATE TABLET PO SCH (20:45)
[2017-01-04] MEDS: SIMVASTATIN 20 MG TABLET PO SCH (20:46)
[2017-01-05] MEDS: SIMVASTATIN 20 MG TABLET PO SCH ×2 (01:02→21:36)
[2017-01-05] MEDS: ALBUTEROL/IPRATROPIUM 2.5mg-0.5mg/3ml NEB AEROSOL SCH ×4 (06:59→21:50)
[2017-01-05] MEDS: CYANOCOBALAMIN (B-12) 500mcg TABLET PO SCH (08:35)
[2017-01-05] MEDS: SENNA + DOCUSATE TABLET PO SCH ×2 (08:35→21:36)
[2017-01-05] MEDS: FERROUS SULFATE 324 MG TABLET PO SCH (08:36)
[2017-01-05] MEDS: HYDROCODONE/APAP 7.5 MG/325 MG TABLET PO PRN ×2 (08:39→14:47)
--- NOTE | 2017-01-05 09:13 | Consult Note ---
<Hannah Escobar - Last Filed: 01/05/17 08:59> Consult Information - Data of Consult Patient: known to practice within the last 3 years Consult date: 01/04/17 Requesting Physician: Tarsa Raines MD Primary Care Provider: ROSELINE RAMOS - Consult Narrative Reason for consult: hypoxia; thrombocytopenia; anemia History of present illness: Mariela is a 72 y/o woman who is seen in consultation from Dr. Raines for postoperative anemia, thrombocytopenia, and hypoxia. She tripped on 01/01/17 and fractured her right hip, and also was diagnosed with a T11 compression fx. She underwent surgical repair that day by Dr. Rodriguez, and has been requiring oxygen since then. A Kaiser was inserted prior to surgery and was discontinued in a timely fashion. She continued to have thrombocytopenia, to which the patient denies previous hx. Drop in hgb was expected and hgb was 9.8 on day of discharge. Iron level was found to be low at 20, and TIBC was low at 206. CXR showed a 1.2 cm mass to right upper lung field. She was medically stable for discharge and was admitted to IRU on 01/04/17. Mariela was seen in the dining area on 01/05/17. She had just completed her breakfast. Today is her birthday, and others were wishing her well. She states that the pain in her back is much worse than the pain in her hip. She has some thigh and leg tightness/swelling, as expected. She has also been constipated and has requested something for her bowels. She denies feeling short of breath, but was placed on oxygen again last night for sats in the 80s. She has never been on oxygen before, but has a hx of smoking. She has not had the urge to smoke since being hospitalized, even without a nicotine patch. She plans to quit smoking, and knows this will help with bone healing. She denies illness, fever, sinus issues, chest pain, weakness or dizziness, skin problems, abdominal pain or nausea or appetite changes, urinary discomfort or retention, or other problems. We reviewed her lab findings - she does not recall ever being told about low platelets. PFSH HLD Possible COPD Surgical History: CM fix of intertrochanteric hip fx 01/01/17-Dr. Rodriguez. Right thumb trigger finger release. Left breast biopsy Family History: Father-diabetes, prostate cancer Mother-congestive heart failure, kidney cancer - Social History Smoking status: Current every day smoker (last cig. 01/01/17) Substance use type: does not use Alcohol intake frequency: does not drink Current occupation: cafeteria at [employer] Social history: PCP : Dr. Ramos in [place] Review of Systems All systems: reviewed and no additional remarkable complaints except as stated - Constitutional Constitutional: Present: as per HPI - EENMT Nose: Present: as per HPI Mouth/Throat: Present: as per HPI - Cardiovascular Vascular: Present: see HPI - Respiratory Respiratory: Present: as per HPI - Gastrointestinal Gastrointestinal: Present: constipation - Genitourinary Genitourinary: Present: as per HPI - Musculoskeletal Musculoskeletal: Present: as per HPI - Neurological Neurological: Present: as per HPI - Endocrine Endocrine: Absent: palpitations - Hematologic/Lymphatic Hematologic/Lymphatic: Absent: easy bruising Medications Home Medications Medication Instructions Recorded Confirmed Type Acetaminophen [Pain Relief] 1,000 mg PO Q8H PRN 01/01/17 01/04/17 History Simvastatin 20 mg PO HS 01/01/17 01/04/17 History Allergies Allergy/AdvReac Type Severity Reaction Status Date / Time No Known Allergies Allergy Verified 01/01/17 13:58 Exam Vital Signs: Temperature 98.1 F 01/05/17 08:00 Pulse Rate 110 H 01/05/17 08:00 Respiratory Rate 14 01/05/17 08:00 Blood Pressure 116/53 01/05/17 08:00 Pulse Oximetry 97 01/05/17 08:00 Oxygen Delivery Method Nasal Cannula Oxygen Flow Rate 2 Height: 1.6 m Weight: 71 kg Body Mass Index: 27.7 - Constitutional Present: no acute distress, well nourished, well developed, thin - Routine HEENT Exam Eye: Present: PERRL. Absent: conjunctival icterus, scleral injection ENT: Present: mucous membranes moist, oropharynx clear - Routine Neck Exam Present: supple. Absent: lymphadenopathy, swelling - Routine Respiratory Exam Present: CTA bilaterally. Absent: rhonchi, wheezes, crackles - Routine Cardiovascular Exam Present: RRR, S1, S2 - Routine Abdominal Exam Present: soft, normoactive bowel sounds (hypoactive), non tender, distended ( mild) - Routine Extremities Exam Present: edema (postop swelling to right thigh), pulses intact - Routine Back/Spine/Pelvis Exam Back/Spine: Present: vertebral tenderness (T11 compression fx) - Routine Skin Exam Present: intact, dry, warm - Routine Neurological Exam Present: alert, oriented X3 - Routine Psychiatric Exam Present: normal affect, normal thought process Results - Labs CBC & Chem 7: 01/05/17 04:28 01/05/17 04:28 Assessment and Plan (1) Thrombocytopenia Current visit: No Status: Acute (2) Hypoxia Current visit: No Status: Acute (3) Anemia Current visit: No Status: Acute (4) Intertrochanteric fracture of right hip Current visit: No Status: Acute (5) Compression fracture of thoracic vertebra Current visit: No Status: Acute (6) COPD (chronic obstructive pulmonary disease) Current visit: No Status: Chronic (7) Pulmonary nodule, right Current visit: No Status: Acute (8) Hypercholesterolemia Current visit: No Status: Chronic (9) Tobacco dependence Current visit: No Status: Chronic DVT Prophylaxis: SCD's Assessment and Plan: ORIF right hip fx; T11 compression fx -PT/OT per attending -[place], Tylenol PRN Thrombocytopenia -platelets down to 56 -DC Lovenox; place SCDs -I spoke to Dr. Ramos's office - last lab draw was 01/20 and platelets were 169 at that time Normocytic anemia, iron deficiency anemia; B12 low-normal -hgb down to 9.2 -continue ferrous sulfate & vitamin B12 -reassess in am Hypoxia and suspected COPD; Right pulmonary nodule -continue oxygen and wean as able -start DuoNeb and continue IS -continue to encourage smoking cessation -monitor CO2, slightly elevated at 32 -discussed with nurse from PCP's office - no formal dx of COPD & no documentation of pulmonary nodule -will need further evaluation with CT scan; could be done outpt Constipation -MiraLAX and Senna Plus are scheduled; MOM PRN thank you for this consultation. We will follow Mariela through her IRU course, paying close attention to hgb, plt, pulm status, and bowel function. Hospital Course Summary Disclaimer: The visit summary below is not to be considered part of the above Progress Note. Sepsis Assessment - Evaluation Sepsis screening result: No Definite Risk <Magdalena Sargent - Last Filed: 01/05/17 21:03> Consult Information - Data of Consult Requesting Physician: Taras Raines MD Primary Care Provider: ROSELINE RAMOS [facility] Patient Stated Medical History Hypertension No Other Cardiology Yes: HIGH CHOLESTEROL Chronic Obstructive Pulmonary possible Disease (COPD) Diabetes Mellitus Type 2 No Gastroesophageal Reflux No Disease Hx Incontinence No Other Musculoskeletal No Anesthesia Reactions No Exam Vital Signs: Temperature 97.4 F 01/05/17 16:00 Pulse Rate 91 01/05/17 16:00 Respiratory Rate 18 01/05/17 20:15 Blood Pressure 133/62 01/05/17 16:00 Pulse Oximetry 93 01/05/17 19:51 Oxygen Delivery Method Nasal Cannula Oxygen Flow Rate 1 Height: 1.6 m Weight: 71 kg Results - Labs CBC & Chem 7: 01/05/17 04:28 01/05/17 04:28 Assessment and Plan (1) Intertrochanteric fracture of right hip Current visit: No Status: Acute (2) Hypoxia Current visit: No Status: Acute (3) COPD (chronic obstructive pulmonary disease) Current visit: No Status: Chronic (4) Compression fracture of thoracic vertebra Current visit: No Status: Acute (5) Constipation Current visit: Yes Status: Acute Assessment and Plan: I have independently evaluated and examined this patient. I reviewed the chart, the patient's history, and the HEALTH AND HUMAN PERFORMANCE PROFESSOR's documented findings as above. We discussed and formulated the assessment and plan as above with additions as below: Mariela is known from her acute stay. She complains of constipation and is frustrated that she is back on supplemental oxygen although only 1 L. She denied increased pain after working with physical therapy and rehabilitation today. Overall she feels is making progress. Respirations are nonlabored and breath sounds clear. Cardiac rhythm regular with normal S1 and S2, no peripheral edema is present. Abdomen is soft and nontender. Platelet count slightly lower again today after rising somewhat yesterday, monitor as noted. Pulmonary nodule evaluated with CT scan during her acute stay-calcified granuloma of no significance. Doing well tobacco free since admission. Milk of magnesia dose this evening requested. Hospital Course Summary Disclaimer: The visit summary below is not to be considered part of the above Progress Note.
[2017-01-05] MEDS ORDERED: ACETAMINOPHEN 325 MG TABLET PO PRN (09:32)
--- NOTE | 2017-01-05 12:39 | IRU Team Meeting ---
IRU Team Meeting - Nursing Vital Signs: Vital Signs - 24 hr 01/04/17 14:31 01/04/17 17:00 01/04/17 20:49 Temperature 98.8 F Pulse Rate 103 H Respiratory Rate 18 22 18 Blood Pressure 134/55 Pulse Oximetry 92 93 01/04/17 21:07 01/04/17 21:08 01/05/17 06:59 Temperature 98.6 F Pulse Rate 113 H Respiratory Rate 20 14 Blood Pressure 115/60 Pulse Oximetry 86 L 95 01/05/17 08:00 Temperature 98.1 F Pulse Rate 110 H Respiratory Rate 14 Blood Pressure 116/53 Pulse Oximetry 97 Current Medications: Acetaminophen (Tylenol) 650 mg PO Q8H PRN PRN Reason: Pain Acetaminophen/Hydrocodone Bitart (Pomerene 7.5/325) 1 - 2 tab PO Q6H PRN PRN Reason: Pain Last Admin: 01/05/17 08:39 Dose: 1 tab Albuterol/Ipratropium (Duoneb) 3 ml AEROSOL TID [facility] Cyanocobalamin (Vit. B-12) 500 mcg PO DAILY [facility] Last Admin: 01/05/17 08:35 Dose: 500 mcg Ferrous Sulfate (Feosol) 324 mg PO WB [facility] Last Admin: 01/05/17 08:36 Dose: 324 mg Magnesium Hydroxide (Mom) 30 ml PO DAILY PRN PRN Reason: Constipation Polyethylene Glycol (Miralax) 17 gm PO DAILY PRN Senna/Docusate Sodium (Senna Plus Tablet) 1 tab PO BID [facility] Last Admin: 01/05/17 08:35 Dose: 1 tab Simvastatin (Zocor) 20 mg PO HS [facility] Last Admin: 01/05/17 01:02 Dose: Not Given Comments: norco working well for pain. does have pain low back due to T12 injury - Physical Therapy Comments: Contact guard most FIM eval. - Occupational Therapy Lower Body Dressing Comment: Requires some adaptive equipment including hip kit. - Care Plan Anticipated DC Destination: Home Health Service Interventions/Goals: wean oxygen if tolerated. adjust use of walker. Barrier to d/c: endurance, pain , oxygen requirement.
--- NOTE | 2017-01-05 14:58 | IRU History & Physical Report ---
HPI IRU Date: Chief complaint: Right hip fracture and ORIF repair HPI: 72 year old female with R femoral neck fracture which was repaired surgically. Pt has pain from both surgery and a T12 compression fracture which is also likely new. She does not require oxygen normally, but has been requiring it since she presented to ED on 01/01. She isunable to manage ADL's at this time due to weakness and pain post op as well as a new onset hypoxemia. She is committed to returning home and would like to work more intensely with PT and OT. She commits to 3 hours daily Review of Systems All systems: reviewed and no additional remarkable complaints except as stated - Constitutional Constitutional: Present: as per HPI - EENMT Nose: Present: as per HPI Mouth/Throat: Present: as per HPI - Cardiovascular Vascular: Present: see HPI - Respiratory Respiratory: Present: as per HPI - Gastrointestinal Gastrointestinal: Present: constipation - Genitourinary Genitourinary: Present: as per HPI - Musculoskeletal Musculoskeletal: Present: as per HPI - Neurological Neurological: Present: as per HPI - Endocrine Endocrine: Absent: palpitations - Hematologic/Lymphatic Hematologic/Lymphatic: Absent: easy bruising PFS Patient Stated Medical History Hypertension No Other Cardiology Yes: HIGH CHOLESTEROL Chronic Obstructive Pulmonary possible Disease (COPD) Diabetes Mellitus Type 2 No Gastroesophageal Reflux No Disease Hx Incontinence No Other Musculoskeletal No Anesthesia Reactions No Surgical History: CM fix of intertrochanteric hip fx 01/01/17-Dr. Rodriguez. Right thumb trigger finger release. Left breast biopsy - Social History Smoking status: Never smoker Substance use type: does not use Alcohol intake frequency: does not drink Current residence: Apartment/Private Home Medications Home Medications Medication Instructions Recorded Confirmed Type Acetaminophen [Pain Relief] 1,000 mg PO Q8H PRN 01/01/17 01/04/17 History Simvastatin 20 mg PO HS 01/01/17 01/04/17 History Allergies Allergy/AdvReac Type Severity Reaction Status Date / Time No Known Allergies Allergy Verified 01/01/17 13:58 Results IRU - Labs Labs: Laboratory Results - last 24 hr 01/05/17 01/05/17 04:28 04:28 WBC 6.2 RBC 3.27 L Hgb 9.2 L Hct 29.3 L MCV 89.6 MCH 28.1 MCHC 31.4 RDW Std Deviation 45.2 Plt Count 56 L MPV 13.5 H Immature Gran % (Auto) 0.2 Neut % (Auto) 57.8 Lymph % (Auto) 24.2 [place] % (Auto) 14.4 H Eos % (Auto) 2.9 Baso % (Auto) 0.5 Neut # 3.6 Lymph # 1.5 [place] # 0.9 H Eos # 0.2 Baso # 0.0 Abs Immat Gran (auto) 0.01 Turbidity < 20 Sodium 141 Potassium 4.1 Chloride 105 Carbon Dioxide 32 H Anion Gap 4 L BUN 10.0 Creatinine 0.7 GFR Calculation 83 BUN/Creatinine Ratio 14 Glucose 106 Calculated Osmolality 270 Calcium 8.8 Icterus Index < 2 Specimen Hemolysis < 15 Exam Vital Signs: Temperature 98.1 F 01/05/17 08:00 Pulse Rate 110 H 01/05/17 08:00 Respiratory Rate 14 01/05/17 08:00 Blood Pressure 116/53 01/05/17 08:00 Pulse Oximetry 97 01/05/17 08:00 Oxygen Delivery Method Nasal Cannula Oxygen Flow Rate 2 Telemetry Rhythm: Sinus Rhythm Height: 1.6 m Weight: 71 kg Body Mass Index: 27.7 - Constitutional Present: mild distress, well nourished, cooperative - Routine HEENT Exam Head: Present: normocephalic, atraumatic Eye: Present: EOMI, PERRL - Routine Chest/Breast/Axilla Exam Chest wall: Absent: tenderness - Routine Respiratory Exam Present: CTA bilaterally - Routine Cardiovascular Exam Present: RRR, no murmur - Routine Abdominal Exam Present: soft, non distended, non tender - Routine Extremities Exam Absent: cyanosis, clubbing - Routine Skin Exam Comments: surgical site clean and dry - Routine Neurological Exam Present: CN II-XII intact, normal reflexes. Absent: sensory deficit, motor deficit - Routine Psychiatric Exam Present: normal affect Sepsis Assessment - Evaluation Sepsis screening result: No Definite Risk IRU A/P (1) Compression fracture of thoracic vertebra Current visit: No Status: Acute PT and OT will work with pt to increase mobility and help with pain control. [place] as needed while inpatient. (2) Hypoxia Current visit: No Status: Acute Medical to manage (3) Intertrochanteric fracture of right hip Qualifiers: Encounter type: initial encounter Fracture type: closed Fracture alignment: displaced Qualified Code(s): S72.141A - Displaced intertrochanteric fracture of right femur, initial encounter for closed fracture Current visit: No Status: Acute Surgically repaired by Ortho. PT and OT will work with pt to increase stamina and strength. Pain control post op site is reasonable at this time. (4) COPD (chronic obstructive pulmonary disease) Current visit: No Status: Chronic Requiring oxygen. Medical to manage at this time. DVT Prophylaxis: SCD's - Course Hospital Course: Taras Raines MD: - Interventions to Obtain Goals PT Treatment Plan: Balance/Proprioception, Functional Activities, Gait Training , Patient/Family Education, Therapeutic Exercise OT Treatment Plan: ADL (Basic Care), Balance Training, IADL, Pt./Family Education, Ther. Exercise for ADL
--- NOTE | 2017-01-05 15:08 | IRU 24Hr Post Admit Eval ---
24 Hr Post Admission Physical - Relevant Changes Relevant Changes: No Reviewed: I have reviewed the patient's information and concur with the finding and results of the pre-admission screen. Certification: I certify the patient for rehabilitation. - Patient Condition (1) Compression fracture of thoracic vertebra Status: Acute Code(s): S22.000A - Wedge compression fracture of unspecified thoracic vertebra, initial encounter for closed fracture (2) Hypoxia Status: Acute Code(s): R09.02 - Hypoxemia (3) Intertrochanteric fracture of right hip Status: Acute Qualifiers: Encounter type: initial encounter Fracture type: closed Fracture alignment: displaced Qualified Code(s): S72.141A - Displaced intertrochanteric fracture of right femur, initial encounter for closed fracture Code(s): S72.141A - Displaced intertrochanteric fracture of right femur, initial encounter for closed fracture (4) COPD (chronic obstructive pulmonary disease) Status: Chronic Code(s): J44.9 - Chronic obstructive pulmonary disease, unspecified - Prior Functional Status Lives With: Alone Residence Type: Apartment/Private Home Assitive Devices: None Prior Functional Status: Indep. at home or school - Current Functional Status Failed Alternative Therapy: Arrived from Acute Care Patient Requirements: The patient requires oversight by rehabilitation physician to manage their rehabilitation treatment plan and multidisciplinary approach to care that can only be provided in an IRF and requires a multidisciplinary approach to care, provided by professional PTs, OTs, STs, dieticians, RTs, rehabilitation nurses and is not available in lesser levels of care. Limitiations Req: Mobility Impairment, ADL Impairment Physical Therapy Minutes: 90 Occupational Therapy Minutes: 90 Therapy: The patient is to receive therapy at least 5 days a week. ROM Deficit: Right Lower Extremity - Complications/Comorbidities Impact on Functional Outcomes: Pt will require extra effort to rebuild strength due to femur fracture. Barriers to Discharge: Weakness, Balance, Endurance, Pain Control - Plan to Avoid Complications Plan to Avoid Complications: The patient cannot receive this care in a lesser intensive setting such as Snf or Outpatient Therapy due to the patient requiring the following medical supervision due to increased demand for oxygen while increasing effort for PT and OT..
[2017-01-06] MEDS: ALBUTEROL/IPRATROPIUM 2.5mg-0.5mg/3ml NEB AEROSOL SCH ×3 (06:59→19:46)
[2017-01-06] MEDS: HYDROCODONE/APAP 7.5 MG/325 MG TABLET PO PRN ×2 (08:14→17:28)
[2017-01-06] MEDS: FERROUS SULFATE 324 MG TABLET PO SCH (08:15)
[2017-01-06] MEDS: CYANOCOBALAMIN (B-12) 500mcg TABLET PO SCH (08:15)
[2017-01-06] MEDS: SENNA + DOCUSATE TABLET PO SCH ×2 (08:15→21:55)
[2017-01-06] MEDS: POLYETHYL GLYCOL 3350 17gm PACKET PO PRN (08:16)
[2017-01-06] MEDS: SIMVASTATIN 20 MG TABLET PO SCH (21:55)
[2017-01-07] MEDS: ALBUTEROL/IPRATROPIUM 2.5mg-0.5mg/3ml NEB AEROSOL SCH ×3 (06:59→21:14)
[2017-01-07] MEDS: POLYETHYL GLYCOL 3350 17gm PACKET PO PRN (08:21)
[2017-01-07] MEDS: FERROUS SULFATE 324 MG TABLET PO SCH (08:22)
[2017-01-07] MEDS: SENNA + DOCUSATE TABLET PO SCH ×2 (08:22→21:01)
[2017-01-07] MEDS: HYDROCODONE/APAP 7.5 MG/325 MG TABLET PO PRN ×2 (08:22→19:38)
[2017-01-07] MEDS: CYANOCOBALAMIN (B-12) 500mcg TABLET PO SCH (08:22)
--- NOTE | 2017-01-07 11:57 | Progress Note ---
Subjective: Mariela is seen today in follow up for her recent hip surgery and acute hypoxia. She is seen in the dining room, awaiting her lunch and expresses excitement in her upcoming discharge home on 01/08. She denies any complaints including no chest pain, shortness of breath, abdominal pain, nausea, vomiting or dysuria. Nursing notes are reviewed and indicate that she continues to have episodes of hypoxia requiring oxygen supplementation. Mariela reports that this new for her since her hip surgery. Chest CT on 01/03 showed left lower lobe atelectasis and small effusion which is most likely causing her acute hypoxia. Discussed with her the importance of using her incentive spironmeter following discharge and the likely need for supplemental oxygen at home for an unknown length of time. Encourage her to follow up with her PCP following her discharge to reassess her oxygen saturations and continued need for oxygen. She also excitedly discussed how she has not felt the urge to smoke and continues to remain nicotine free to assist with her healing. Her appitite remains good and her bowels have moved slightly. No new labs today. Objective Vital signs: Temperature 98.3 F 01/07/17 07:38 Pulse Rate 93 01/07/17 07:38 Respiratory Rate 18 01/07/17 07:38 Blood Pressure 128/68 01/07/17 07:38 Pulse Oximetry 86 L 01/07/17 07:00 Oxygen Delivery Method Nasal Cannula Oxygen Flow Rate 2 Fraction of Inspired Oxygen 92 Body Mass Index: 27.7 - Constitutional Present: no acute distress, well nourished, well developed, cooperative - Routine HEENT Exam Head: Present: normocephalic, atraumatic Eye: Present: PERRL. Absent: scleral injection ENT: Present: mucous membranes moist - Routine Respiratory Exam Present: crackles (basilar). Absent: accessory muscle use, dyspnea, rhonchi, stridor, wheezes - Routine Cardiovascular Exam Present: RRR, S1, S2 - Routine Abdominal Exam Present: soft, normoactive bowel sounds, non distended, non tender - Routine Extremities Exam Present: edema (trace), non tender, pulses intact. Absent: cyanosis, clubbing, calf tenderness Comments: swelling greater on right than left, most likely secondary to recent hip surgery and dependent edema. - Routine Back/Spine/Pelvis Exam Back/Spine: Present: full ROM - Routine Musculoskeletal Exam Musculoskeletal: Present: normal strength, surgical scar (bandage intact, clean and dry to right hip.) - Routine Skin Exam Present: intact, warm. Absent: erythema, jaundice - Routine Neurological Exam Present: alert, oriented X3, moving all extremities, normal speech - Routine Psychiatric Exam Present: normal affect, cooperative Results - Labs CBC & Chem 7: 01/06/17 04:44 01/06/17 04:44 Assessment and Plan (1) Intertrochanteric fracture of right hip Current visit: No Status: Acute (2) Hypoxia Current visit: No Status: Acute (3) COPD (chronic obstructive pulmonary disease) Current visit: No Status: Chronic (4) Compression fracture of thoracic vertebra Current visit: No Status: Acute (5) Constipation Current visit: Yes Status: Acute Assessment and Plan: Overall, Mariela states she is doing well. She complains of constipation but admits that her bowels are starting to move. She continues to require 1-2L oxygen to maintain SAO2 since her surgery. CT chest on 01/03 showed atelectasis and small plueral effusion. She denied increased pain after working with physical therapy and rehabilitation today. Overall she feels is making progress and is eager for discharge home tomorrow. Respirations are nonlabored and breath sounds clear with slight basilar crackles noted. She is currently on 2L NC. Cardiac rhythm regular with normal S1 and S2, trace peripheral edema noted bilaterally, R>L. Abdomen is soft and nontender. with active bowel sounds. She continues to do well tobacco free since admission. Continue bowel motivation. Discussed need for oxygen at home on discharge in light of her persistent hypoxia. Will give Lasix 20mg po now for fluid motivation and recheck labs in AM. Continue to wean oxygen as able. Encourage follow up as outpatient as duration of oxygen needs are unknown. Continue to provide safe and supportive environment and encourage therapies. Anticipate discharge tomorrow to home with . Sepsis Assessment - Evaluation Sepsis screening result: No Definite Risk Hospital Course Summary Disclaimer: The visit summary below is not to be considered part of the above Progress Note. Hospital Course: 01/07/17 12:09 Overall, Mariela states she is doing well. She complains of constipation but admits that her bowels are starting to move. She continues to require 1-2L oxygen to maintain SAO2 since her surgery. CT chest on 01/03 showed atelectasis and small plueral effusion. She denied increased pain after working with physical therapy and rehabilitation today. Overall she feels is making progress and is eager for discharge home tomorrow. Respirations are nonlabored and breath sounds clear with slight basilar crackles noted. She is currently on 2L NC. Cardiac rhythm regular with normal S1 and S2, trace peripheral edema noted bilaterally, R>L. Abdomen is soft and nontender. with active bowel sounds. She continues to do well tobacco free since admission. Continue bowel motivation. Discussed need for oxygen at home on discharge in light of her persistent hypoxia. Will give Lasix 20mg po now for fluid motivation and recheck labs in AM. Continue to wean oxygen as able. Encourage follow up as outpatient as duration of oxygen needs are unknown. Continue to provide safe and supportive environment and encourage therapies. Anticipate discharge tomorrow to home with .
[2017-01-07] MEDS: FUROSEMIDE 20 MG TABLET PO SCH (12:19)
[2017-01-07] MEDS: SIMVASTATIN 20 MG TABLET PO SCH (21:01)
[2017-01-08] MEDS: ALBUTEROL/IPRATROPIUM 2.5mg-0.5mg/3ml NEB AEROSOL SCH ×2 (07:01→10:41)
[2017-01-08] MEDS: HYDROCODONE/APAP 7.5 MG/325 MG TABLET PO PRN (09:04)
[2017-01-08] MEDS: FERROUS SULFATE 324 MG TABLET PO SCH (09:05)
[2017-01-08] MEDS: CYANOCOBALAMIN (B-12) 500mcg TABLET PO SCH (09:05)
[2017-01-08] MEDS: SENNA + DOCUSATE TABLET PO SCH (09:05)
[2017-01-08 09:26] VITALS: BP 129/58; PULSE 113; TEMP 97.8
--- NOTE | 2017-01-08 09:36 | Discharge Summary ---
Discharge Plan - Med Rec/Dispo Referrals/Follow Up: ROSELINE RAMOS [Primary Care Provider] - (Dr. Nishi Ramos on 01/13/17 at 10:50 am for Hosp. follow-up. [facility] [place] [address]. . ) Jovi Gomez PA [Physician Braille Coder] - (CORINA Ventura on 01/18/17 at 1:00 pm for Post-Op follow-up. [address] [place] [address]. .) Prescriptions: New Furosemide [Lasix] 20 mg PO O tablet Hydrocodone/APAP 7.5/325 [[place] 7.5/325] 1 - 2 tab PO Q6H PRN #60 tablet PRN Reason: Pain PEG 3350 17gm PACKET [Miralax] 17 gm PO DAILY packet Senna + Docusate [Senna Plus Tablet] 1 tab PO BID tablet Cyanocobalamin (B-12) [Vit. B-12] 500 mcg PO DAILY tablet Ferrous Sulfate [Feosol] 324 mg PO WB tablet Aspirin [ASA] 325 mg PO BID #34 tablet Continue Simvastatin 20 mg PO HS Acetaminophen [Pain Relief] 1,000 mg PO Q8H PRN PRN Reason: Pain Discontinued Enoxaparin Sodium [Lovenox] 40 mg SQ Q24H #30 syr No Action Hydrocodone/APAP 7.5/325 [[place] 7.5/325] 1 - 2 tab PO Q6H PRN #60 PRN Reason: Pain - Disposition 01 Discharged Home, Self-Care
[2017-01-08] MEDS ORDERED: ASPIRIN 325 MG TABLET PO SCH (09:45)
--- NOTE | 2017-01-08 10:12 | IRU Progress Note ---
- Subjective/Serverity of Illness Pt working well with PT and OT, she feels like she is making progress. Eating in commons area. Exam Vital Signs: Temperature 97.8 F 01/08/17 07:45 Pulse Rate 113 H 01/08/17 07:45 Respiratory Rate 20 01/08/17 07:45 Blood Pressure 129/58 01/08/17 07:45 Pulse Oximetry 93 01/08/17 07:45 Oxygen Delivery Method Nasal Cannula Oxygen Flow Rate 1 Fraction of Inspired Oxygen 92 Height: 1.6 m Weight: 71 kg Body Mass Index: 27.7 - Constitutional Present: no acute distress - Routine Neck Exam Present: supple, full ROM - Routine Respiratory Exam Present: decreased breath sounds, wheezes (mild bilat) - Routine Cardiovascular Exam Present: RRR, no murmur - Routine Abdominal Exam Present: soft, normoactive bowel sounds, non distended, non tender - Routine Extremities Exam Absent: cyanosis, clubbing, edema - Routine Skin Exam Present: intact, dry, warm - Routine Neurological Exam Present: alert, oriented X3 - Routine Psychiatric Exam Present: normal affect Sepsis Assessment - Evaluation Sepsis screening result: No Definite Risk IRU A/P (1) Compression fracture of thoracic vertebra Current visit: No Status: Acute Working with PT and OT to increase strength and stamina. Pain managed with meds. Cont with current plan of care. (2) Hypoxia Current visit: No Status: Acute Continuing oxygen, medical to manage. (3) Intertrochanteric fracture of right hip Qualifiers: Encounter type: initial encounter Fracture type: closed Fracture alignment: displaced Qualified Code(s): S72.141A - Displaced intertrochanteric fracture of right femur, initial encounter for closed fracture Current visit: No Status: Acute PT and OT have appropriate plan of care and pt is cooperating well. COnt with current plan, reeval at team meeting. (4) COPD (chronic obstructive pulmonary disease) Current visit: No Status: Chronic See hypoxia assessment DVT Prophylaxis: SCD's GI Prophylaxis: Rantidine - Course Hospital Course: Taras Raines MD: 01/07/17 10:13 - Interventions to Obtain Goals PT Treatment Plan: Balance/Proprioception, Functional Activities, Gait Training , Patient/Family Education, Therapeutic Exercise OT Treatment Plan: ADL (Basic Care), Balance Training, IADL, Pt./Family Education, Ther. Exercise for ADL
--- NOTE | 2017-01-08 10:20 | IRU Progress Note ---
- Subjective/Serverity of Illness Pain worse today, pt thinks it is likely due to increased activity. Willing to cont with therapy. Exam Vital Signs: Temperature 97.8 F 01/08/17 07:45 Pulse Rate 113 H 01/08/17 07:45 Respiratory Rate 20 01/08/17 07:45 Blood Pressure 129/58 01/08/17 07:45 Pulse Oximetry 93 01/08/17 07:45 Oxygen Delivery Method Nasal Cannula Oxygen Flow Rate 1 Fraction of Inspired Oxygen 92 Height: 1.6 m Weight: 71 kg Body Mass Index: 27.7 - Constitutional Present: mild distress - Routine HEENT Exam Head: Present: normocephalic - Routine Neck Exam Present: supple. Absent: JVD - Routine Chest/Breast/Axilla Exam Chest wall: Absent: tenderness - Routine Respiratory Exam Present: CTA bilaterally, diminished air movement - Routine Cardiovascular Exam Present: RRR, no murmur - Routine Abdominal Exam Present: soft, normoactive bowel sounds, non distended, non tender Sepsis Assessment - Evaluation Sepsis screening result: No Definite Risk IRU A/P (1) Compression fracture of thoracic vertebra Current visit: No Status: Acute Increased pain with increased activity. Cont with activity as tolerated. Meds as needed. (2) Hypoxia Current visit: No Status: Acute Medical managing. (3) Intertrochanteric fracture of right hip Qualifiers: Encounter type: initial encounter Fracture type: closed Fracture alignment: displaced Qualified Code(s): S72.141A - Displaced intertrochanteric fracture of right femur, initial encounter for closed fracture Current visit: No Status: Acute PT and OT with plan of care. Pt receiving 3 hours total therapy daily. (4) COPD (chronic obstructive pulmonary disease) Current visit: No Status: Chronic medical managing. DVT Prophylaxis: SCD's - Course Hospital Course: Taras Raines MD: 01/07/17 10:13 - Interventions to Obtain Goals PT Treatment Plan: Balance/Proprioception, Functional Activities, Gait Training , Patient/Family Education, Therapeutic Exercise OT Treatment Plan: ADL (Basic Care), Balance Training, IADL, Pt./Family Education, Ther. Exercise for ADL
--- NOTE | 2017-01-08 10:24 | Discharge Summary ---
Discharge Information Date of admission: 01/04/17 14:26 Attending Physician: Taras Raines MD Primary care physician: ROSELINE RAMOS Consults: 01/04/17 15:12 Physician Consult [CONS] Routine Consulting Provider: Magy Mendez Reason For Exam: Right hip fracture. Pre op clearance/post op care Ordering Provider has Notified Heddler Tier: Yes 01/04/17 15:20 Physician Consult [CONS] Routine Consulting Provider: Magdalena Sargent Reason For Exam: medical management Ordering Provider has Notified Heddler Tier: Yes - Discharge Diagnosis (1) Compression fracture of thoracic vertebra Status: Acute (2) Hypoxia Problem Details: Continues to require oxygen. She will be d/c with 1 L/Min NC. Status: Acute (3) Intertrochanteric fracture of right hip Qualifiers: Encounter type: initial encounter Fracture type: closed Fracture alignment: displaced Qualified Code(s): S72.141A - Displaced intertrochanteric fracture of right femur, initial encounter for closed fracture Status: Acute (4) COPD (chronic obstructive pulmonary disease) Status: Chronic - Laboratory Labs: 01/08/17 04:50 01/08/17 04:50 History of Present Illness HPI: 01/08/17 10:24 72 year old female with R femoral neck fracture which was repaired surgically. Pt has pain from both surgery and a T12 compression fracture which is also likely new. She does not require oxygen normally, but has been requiring it since she presented to ED on 01/01. She isunable to manage ADL's at this time due to weakness and pain post op as well as a new onset hypoxemia. She is committed to returning home and would like to work more intensely with PT and OT. She commits to 3 hours daily Hospital Course This is a general summary of the patient's hospital course. For more details refer to the complete medical record. Patient was admitted 01/05/2017 for ORIF intertrochanteric fracture left hip. She also has a history of COPD which was not requiring oxygen prior to surgery as well as a compression fracture lumbar spine. She had significant pain between postop fracture healing and lumbar spine compression fracture and required narcotic pain medication for this. She'll be discharged on meds as needed. Patient require oxygen throughout her stay she did decrease from 2 L/m to 1 L/m. She'll be discharged on 1 L/m nasal cannula. She is to follow-up with her primary care provider within the next week and with orthopedics as needed. Hospital course: 01/07/17 12:09 Overall, Mariela states she is doing well. She complains of constipation but admits that her bowels are starting to move. She continues to require 1-2L oxygen to maintain SAO2 since her surgery. CT chest on 01/03 showed atelectasis and small plueral effusion. She denied increased pain after working with physical therapy and rehabilitation today. Overall she feels is making progress and is eager for discharge home tomorrow. Respirations are nonlabored and breath sounds clear with slight basilar crackles noted. She is currently on 2L NC. Cardiac rhythm regular with normal S1 and S2, trace peripheral edema noted bilaterally, R>L. Abdomen is soft and nontender. with active bowel sounds. She continues to do well tobacco free since admission. Continue bowel motivation. Discussed need for oxygen at home on discharge in light of her persistent hypoxia. Will give Lasix 20mg po now for fluid motivation and recheck labs in AM. Continue to wean oxygen as able. Encourage follow up as outpatient as duration of oxygen needs are unknown. Continue to provide safe and supportive environment and encourage therapies. Anticipate discharge tomorrow to home with . Time spent with patient: 25 - 35 minutes Discharge Plan - Med Rec/Dispo Referrals/Follow Up: Jovi Gomez PA [Physician Semiconductor Technician] - (CORINA Ventura on 01/18/17 at 1:00 pm for Post-Op follow-up. [address] [place] [address]. [phone].) ROSELINE RAMOS [Primary Care Provider] - (Dr. Nishi Ramos on 01/13/17 at 10:50 am for Hosp. follow-up. [facility] [address] [place] [address]. . ) Prescriptions: New Furosemide [Lasix] 20 mg PO O tablet Hydrocodone/APAP 7.5/325 [[employer] 7.5/325] 1 - 2 tab PO Q6H PRN #60 tablet PRN Reason: Pain PEG 3350 17gm PACKET [Miralax] 17 gm PO DAILY packet Senna + Docusate [Senna Plus Tablet] 1 tab PO BID tablet Cyanocobalamin (B-12) [Vit. B-12] 500 mcg PO DAILY tablet Ferrous Sulfate [Feosol] 324 mg PO WB tablet Aspirin [ASA] 325 mg PO BID #34 tablet Continue Simvastatin 20 mg PO HS Acetaminophen [Pain Relief] 1,000 mg PO Q8H PRN PRN Reason: Pain Discontinued Enoxaparin Sodium [Lovenox] 40 mg SQ Q24H #30 syr No Action Hydrocodone/APAP 7.5/325 [[employer] 7.5/325] 1 - 2 tab PO Q6H PRN #60 PRN Reason: Pain - Disposition 01 Discharged Home, Self-Care
[2017-01-08 10:44] VITALS: RESP 22; O2SAT 95
--- NOTE | 2017-01-08 11:28 | IRU Team Meeting ---
IRU Team Meeting - Nursing Vital Signs: Vital Signs - 24 hr 01/07/17 14:35 01/07/17 15:00 01/07/17 20:46 Temperature 98.0 F Pulse Rate 106 H 112 H Respiratory Rate 16 16 Blood Pressure 118/53 Pulse Oximetry 93 98 93 01/07/17 21:14 01/07/17 22:00 01/07/17 23:00 Temperature 99.0 F Pulse Rate 114 H Respiratory Rate 16 16 16 Blood Pressure 132/49 Pulse Oximetry 94 88 L 88 L 01/08/17 00:00 01/08/17 01:00 01/08/17 03:00 Temperature Pulse Rate Respiratory Rate 16 16 16 Blood Pressure Pulse Oximetry 91 93 93 01/08/17 06:50 01/08/17 07:45 01/08/17 10:35 Temperature 97.8 F Pulse Rate 113 H Respiratory Rate 16 20 22 Blood Pressure 129/58 Pulse Oximetry 97 93 95 Current Medications: Acetaminophen (Tylenol) 650 mg PO Q8H PRN PRN Reason: Pain Acetaminophen/Hydrocodone Bitart ([place] 7.5/325) 1 - 2 tab PO Q6H PRN PRN Reason: Pain Last Admin: 01/08/17 09:04 Dose: 1 tab Albuterol/Ipratropium (Duoneb) 3 ml AEROSOL TID [facility] Last Admin: 01/08/17 10:41 Dose: 3 ml Aspirin (Asa) 325 mg PO BID [facility] Cyanocobalamin (Vit. B-12) 500 mcg PO DAILY [facility] Last Admin: 01/08/17 09:05 Dose: 500 mcg Ferrous Sulfate (Feosol) 324 mg PO WB [facility] Last Admin: 01/08/17 09:05 Dose: 324 mg Furosemide (Lasix) 20 mg PO O [facility] Last Admin: 01/07/17 12:19 Dose: 20 mg Magnesium Hydroxide (Mom) 30 ml PO DAILY PRN PRN Reason: Constipation Last Admin: 01/08/17 09:06 Dose: 30 ml Polyethylene Glycol (Miralax) 17 gm PO DAILY PRN Last Admin: 01/07/17 08:21 Dose: 17 gm Senna/Docusate Sodium (Senna Plus Tablet) 1 tab PO BID [facility] Last Admin: 01/08/17 09:05 Dose: 1 tab Simvastatin (Zocor) 20 mg PO HS [facility] Last Admin: 01/07/17 21:01 Dose: 20 mg Comments: Pt blood pressure low with Lisinopril. Held today Orthostatics done, neg. - Physical Therapy Comments: Pt improved significantly, managing adl wit min or mod I assist. - Occupational Therapy Lower Body Dressing Comment: Overall improved without sig issues. See FIM scores. - Care Plan Interventions/Goals: Plan d/c tomorrow. Pt stable and safe for d/c. See team meeting note.
[2017-01-08] MEDS: FUROSEMIDE 20 MG TABLET PO SCH (11:36)
--- NOTE | 2017-01-08 12:11 | Ultrasound Report ---
Indication: RLE swelling, recent right hip surgery PROCEDURE: US venous doppler LE RT: Encounter: Initial Comparison: None Technique: Color Doppler duplex and grayscale sonographic imaging of the right lower extremity was performed. Findings: There is no evidence for acute deep venous thrombosis in the right thigh. Specifically, serial graded compression was performed from the inguinal ligament to the popliteal bifurcation, on the right thigh, demonstrating appropriate compressibility of the deep venous system. In addition, color and pulsed Doppler demonstrate appropriate spontaneous flow, variation with respiration, and augmentation with calf compression. At the ankle, normal flow is identified in the posterior tibial veins; these vessels are also normal in caliber. Impression: No evidence of acute DVT in the right lower limb. .
--- NOTE | 2017-01-08 16:11 | Progress Note ---
Subjective: Mariela is seen this morning while resting in her room. She is concerned about right lower extremity edema. We did discuss that this is likely secondary to being postoperatively. However, she is concerned about a blood clot. She has continued to require an oxygen 1-2 liters to maintain saturations. She does have a proximal any history of COPD and tobacco use. She is feeling good. Appetite is fair. No difficulty with urination or bowel movements. Objective Vital signs: Temperature 97.8 F 01/08/17 07:45 Pulse Rate 113 H 01/08/17 07:45 Respiratory Rate 22 01/08/17 10:35 Blood Pressure 129/58 01/08/17 07:45 Pulse Oximetry 95 01/08/17 10:35 Oxygen Delivery Method Nasal Cannula Oxygen Flow Rate 1 Fraction of Inspired Oxygen 92 Body Mass Index: 27.7 - Constitutional Present: no acute distress - Routine HEENT Exam Head: Present: normocephalic Eye: Present: EOMI, PERRL ENT: Present: mucous membranes moist - Routine Respiratory Exam Present: CTA bilaterally - Routine Cardiovascular Exam Present: RRR, S1, S2 - Routine Abdominal Exam Present: soft, normoactive bowel sounds - Routine Back/Spine/Pelvis Exam Back/Spine: Present: full ROM - Routine Skin Exam Present: intact, warm - Routine Neurological Exam Present: alert, oriented X3, CN II-XII intact, moving all extremities Results - Labs CBC & Chem 7: 01/08/17 04:50 01/08/17 04:50 Assessment and Plan (1) Intertrochanteric fracture of right hip Status: Acute (2) Hypoxia Problem details: Continues to require oxygen. She will be d/c with 1 L/Min NC. Status: Acute (3) COPD (chronic obstructive pulmonary disease) Status: Chronic (4) Compression fracture of thoracic vertebra Status: Acute Assessment and Plan: 01/08/17 Given increased swelling to the right lower ext . Venous Doppler was obtained that did not reveal an acute thrombus. Discussed with orthopedic team regarding postoperative anticoagulation. Due to thrombocytopenia. Lovenox had been on hold. Will recommend taking aspirin 325 milligrams twice a day for 5 additional weeks for anticoagulation She is discharged on home oxygen and will work on weaning this off with primary care provider She will follow with her primary care provider, Dr. Hudson as well as orthopedic team. Sepsis Assessment - Evaluation Sepsis screening result: No Definite Risk Hospital Course Summary Disclaimer: The visit summary below is not to be considered part of the above Progress Note. Hospital Course: 01/07/17 12:09 Overall, Mariela states she is doing well. She complains of constipation but admits that her bowels are starting to move. She continues to require 1-2L oxygen to maintain SAO2 since her surgery. CT chest on 01/03 showed atelectasis and small plueral effusion. She denied increased pain after working with physical therapy and rehabilitation today. Overall she feels is making progress and is eager for discharge home tomorrow. Respirations are nonlabored and breath sounds clear with slight basilar crackles noted. She is currently on 2L NC. Cardiac rhythm regular with normal S1 and S2, trace peripheral edema noted bilaterally, R>L. Abdomen is soft and nontender. with active bowel sounds. She continues to do well tobacco free since admission. Continue bowel motivation. Discussed need for oxygen at home on discharge in light of her persistent hypoxia. Will give Lasix 20mg po now for fluid motivation and recheck labs in AM. Continue to wean oxygen as able. Encourage follow up as outpatient as duration of oxygen needs are unknown. Continue to provide safe and supportive environment and encourage therapies. Anticipate discharge tomorrow to home with .
--- NOTE | 2017-02-04 07:02 | IRU Plan of Care ---
IRU Overall Plan of Care - Patient Impairments (1) Compression fracture of thoracic vertebra Code(s): S22.000A - Wedge compression fracture of unspecified thoracic vertebra , initial encounter for closed fracture Status: Acute Classification: Present on IRF Admission, IRF Tx That Should Address Diagnosis (2) Hypoxia Code(s): R09.02 - Hypoxemia Status: Acute Classification: Present on IRF Admission, Diagnosis Requiring Medical Follow Up (3) Intertrochanteric fracture of right hip Qualifiers: Encounter type: initial encounter Fracture type: closed Fracture alignment: displaced Qualified Code(s): S72.141A - Displaced intertrochanteric fracture of right femur, initial encounter for closed fracture Code(s): S72.141A - Displaced intertrochanteric fracture of right femur, initial encounter for closed fracture Status: Acute Classification: Present on IRF Admission, IRF Tx That Should Address Diagnosis, Diagnosis Requiring Medical Follow Up (4) COPD (chronic obstructive pulmonary disease) Code(s): J44.9 - Chronic obstructive pulmonary disease, unspecified Status: Chronic Classification: Present on IRF Admission, Diagnosis Requiring Medical Follow Up - Relevant Changes Relevant Changes: No Reviewed: I have reviewed the patient's information and concur with the finding and results of the pre-admission screen. Certification: I certify the patient for rehabilitation. - Medical Prognosis Medical Prognosis: Fair Vital Signs: Last Vital Signs Temp 97.8 F 01/08/17 07:45 Pulse 113 H 01/08/17 07:45 Resp 22 01/08/17 10:35 BP 129/58 01/08/17 07:45 Pulse Ox 95 01/08/17 10:35 - Anticipated Interventions Anticipated Interventions: The patient requires inpatient IRF care for PT, OT, and/or ST for residuals remaining from [] resulting in muscular weakness and strength deficits. ROM Deficit: Right Lower Extremity Strength Deficits: Right Lower Extremity, Left Upper Extremity - FIM Ambulation Distance: 349 Expression FIM Score Reason: please see overall FIM scores from PT and OT/ reviewed. Toileting Adaptive Equipment: Grab Bars Urinary Catheter Present: No Number of Continent Voids: 1 Number of Incontinent Voids: 0 - Current Functional Status Failed Alternative Therapy: Arrived from Acute Care Patient Requires: The patient requires oversight by rehabilitation physician to manage their rehabilitation treatment plan and multidisciplinary approach to care that can only be provided in an IRF and requires a multidisciplinary approach to care, provided by professional PTs, OTs, STs, dieticians, RTs, rehabilitation nurses and is not available in lesser levels of care. Physical Therapy Minutes: 90 Occupational Therapy Minutes: 90 Therapy: The patient is to receive therapy at least 5 days a week. - Anticipated LOS/Outcomes Anticipated Functional Outcome: Return to preinjury status with inpatient physical therapy and occupational therapy. Anticipated DC Destination: Home Health Service Home Safety Plan: The patient will be provided with the development of a Home Safety Plan for return to a home or home-like environment and and to ensure safety post discharge. - Plan to Avoid Complications Barriers to Attaining Goals: Weakness, Balance, Endurance, Pain Control Plan to Avoid Complications: The patient cannot receive this care in a lesser intensive setting such as Assisted or Outpatient Therapy due to the patient requiring medical supervision of hip fracture, COPD and other medical issues.
== END 2017-01-08 13:30 | disposition home health service (06) | DRG 561 ==
PROVIDERS: ADMIT Family Medicine; ATTEND Family Medicine